=== PATIENT | male | born 1965 | race Caucasian/White ===

== ENCOUNTER 2019-12-16 20:43 | Inpatient (IN) ==
[2019-12-16] MEDS ORDERED: HEPARIN 5,000 UNIT/1 ML VIAL ONE (20:54)
[2019-12-16] MEDS ORDERED: HEPARIN 1,000 UNIT/1 ML VIAL IV STA (20:59)
[2019-12-16] MEDS ORDERED: CLOPIDOGREL 300 MG TABLET PO STA (20:59)
[2019-12-16] MEDS ORDERED: LIDOCAINE 1% 20 ML VIAL ONE (21:18)
[2019-12-16] MEDS ORDERED: HEPARIN/NACL 0.9% 2 UNITS/ML 1,000 ML IV ONE (21:18)
[2019-12-16] MEDS ORDERED: NITROGLYCERIN DRIP 50 MG/250 ML BOTTLE IV ONE (21:26)
[2019-12-16] MEDS ORDERED: MIDAZOLAM 2 MG/2 ML VIAL ONE (21:32)
[2019-12-16] MEDS ORDERED: HYDROmorphone 2 MG/1 ML VIAL ONE (21:32)
[2019-12-16] MEDS ORDERED: VERAPAMIL 5 MG/2 ML VIAL ONE (21:32)
[2019-12-16 21:42] LABS: Troponin I 0.158 NG/ML (0.00-0.045)
[2019-12-16 21:44] LABS: Basophils % 0.3 % (0.0-0.8); Eosinophils # 0.1 10*3/uL (0.0-0.87); Eosinophils % 1.6 % (0.00-10.9); Immature Granulocytes % 0.7 %; Immature Granulocytes Absolute 0.05 #; Lymphocytes % 12.6 % (21.2-54.2); Mean Corpuscular HGB Conc 29.7 GM/DL (32-36); Mean Corpuscular Volume 134.1 FL (87-102); Mean Platelet Volume 10.2 FL (9.6-12.0); Monocytes % 4.6 % (1.7-12.7); Neutrophils % 80.2 % (38.7-73.9); Platelet Count 124 T/CUMM (130-400); Red Blood Count 1.23 MC/CUMM (3.8-5.5); Red Cell Distribution Width 13.5 % (9.3-17.3); White Blood Count 7.6 T/CUMM (4-12)
[2019-12-16 21:47] LABS: Hematocrit 16.5 VOL% (42.0-52.0); Hemoglobin 4.9 GM/DL (14.0-18.0)
[2019-12-16] MEDS ORDERED: DOPamine 800 MG/250 ML PREMIX IV ONE (21:50)
[2019-12-16 21:53] LABS: Barbiturates Screen,Urine Negative (Negative); Benzodiazepines Screen,Urine Positive (Negative); Cannabinoid Screen,Urine Negative (Negative); Opiate Screen,Urine Positive (Negative); Phencyclidine Screen,Urine Negative (Negative)
[2019-12-16 22:02] LABS: Albumin 2.8 G/DL (3.4-5.0); Bilirubin,Total 0.6 MG/DL (0.2-1.0); Calcium 7.8 MG/DL (8.5-10.1); Osmolality,Calculated 281.1 MOS/KG (273-304); Total Protein 6.3 G/DL (6.4-8.3)
[2019-12-16] MEDS ORDERED: NALOXONE 0.4 MG/ML VIAL ONE (22:27)
[2019-12-16] MEDS ORDERED: flumazeniL 0.5 MG/5 ML VIAL IV ONE (22:27)
[2019-12-16 22:33] LABS: ABG Base Excess -18.8 MMOL/L (-2.5-2.5); ABG HCO3 10.5 MMOL/L (20-26); ABG Oxygen Saturation 83.1 % (95-100); ABG PO2 78.1 MM HG (80-95); ABG TCO2 14.9 MMOL/L (23-27)
[2019-12-16 22:35] LABS: ABG PCO2 70.5 MM HG (35-48)
[2019-12-16 22:36] LABS: ABG PH 6.932 (7.35-7.45)
[2019-12-16] MEDS ORDERED: ROCURONIUM 100 MG/10 ML VIAL IV ONE (22:37)
[2019-12-16] MEDS ORDERED: ETOMIDATE 20 MG/10 ML VIAL IV ONE (22:38)
[2019-12-16] MEDS ORDERED: EPTIFIBATIDE 75 MG/100 ML BOTTLE IV ONE (22:46)
[2019-12-16] MEDS ORDERED: EPTIFIBATIDE 20,000 MCG/10 ML VIAL ONE (22:46)
[2019-12-16 22:48] LABS: INR 1.2; PT Patient Result 12.6 SECS (9.8-11.9)
[2019-12-16 22:55] LABS: Partial Thromboplastin Time 100.6 SECS (23.9-33.8)
[2019-12-16] MEDS ORDERED: SODIUM BICARBONATE 50 MEQ/50 ML VIAL IV ONE ×2 (23:29)
[2019-12-16] MEDS ORDERED: ONDANSETRON 4 MG/2 ML VIAL IV PRN (23:30)
[2019-12-16] MEDS ORDERED: LACTATED RINGERS 1,000 ML IV SCH (23:30)
[2019-12-16] MEDS ORDERED: MAGNESIUM SULF RIDER 4 GM in PREMIX 1 EACH IV ONE (23:30)
[2019-12-16 23:39] LABS: ABG Base Excess -16.7 MMOL/L (-2.5-2.5); ABG HCO3 12.2 MMOL/L (20-26); ABG PCO2 40.5 MM HG (35-48); ABG PO2 87.6 MM HG (80-95); ABG TCO2 11.8 MMOL/L (23-27); Allen Test Positive; Pt O2 Delivery Device Ventilator
[2019-12-16 23:42] LABS: ABG PH 7.113 (7.35-7.45)
[2019-12-17 00:06] LABS: Hematocrit 36.8 VOL% (42.0-52.0); Hemoglobin 11.5 GM/DL (14.0-18.0)
[2019-12-17 01:06] LABS: Basophils # 0.1 10*3/uL (0.0-0.2); Basophils % 0.4 % (0.0-0.8); Eosinophils % 0.1 % (0.00-10.9); Hematocrit 41.2 VOL% (42.0-52.0); Hemoglobin 13.2 GM/DL (14.0-18.0); Immature Granulocytes Absolute 0.15 #; Lymphocytes # 0.8 10*3/uL (1.4-4.0); Lymphocytes % 5.8 % (21.2-54.2); Mean Corpuscular Volume 121.9 FL (87-102); Mean Platelet Volume 10.4 FL (9.6-12.0); Monocytes % 3.4 % (1.7-12.7); NRBC # 0.02 10*3/uL; Neutrophils % 89.3 % (38.7-73.9); Platelet Count 251 T/CUMM (130-400); Red Blood Count 3.38 MC/CUMM (3.8-5.5); Red Cell Distribution Width 16.4 % (9.3-17.3); White Blood Count 14.6 T/CUMM (4-12)
[2019-12-17 01:18] LABS: Albumin 2.7 G/DL (3.4-5.0); Bilirubin,Total 1.3 MG/DL (0.2-1.0); Calcium 7.3 MG/DL (8.5-10.1); Osmolality,Calculated 285.1 MOS/KG (273-304); Total Protein 6.3 G/DL (6.4-8.3)
[2019-12-17] MEDS: SODIUM BICARB INJ 150 MEQ in DEXTROSE 5% 850 ML IV SCH ×2 (01:46→13:07)
[2019-12-17] MEDS ORDERED: PHENYLEPHRINE DRIP 40 MG/250 ML PREMIX IV ONE (01:48)
[2019-12-17] MEDS: PHENYLEPHRINE DRIP 40 MG/250 ML PREMIX IV PRN ×3 (02:45→18:19)
[2019-12-17] MEDS ORDERED: NOREPINEPHRINE 8 MG in SODIUM CHLORIDE 0.9% 242 ML IV PRN (02:57)
[2019-12-17 04:29] LABS: Hypochromasia 1+; Platelet Estimate Adequate
[2019-12-17] MEDS: CLINDAMYCIN INJ 600 MG in PREMIX 1 EACH IV SCH ×3 (04:45→21:50)
[2019-12-17 05:27] LABS: ABG Base Excess -3.7 MMOL/L (-2.5-2.5); ABG HCO3 21.4 MMOL/L (20-26); ABG Oxygen Saturation 99.8 % (95-100); ABG PCO2 31.8 MM HG (35-48); ABG PH 7.407 (7.35-7.45); ABG TCO2 17.6 MMOL/L (23-27)
[2019-12-17 05:42] LABS: Basophils # 0.1 10*3/uL (0.0-0.2); Basophils % 0.3 % (0.0-0.8); Eosinophils % 0.1 % (0.00-10.9); Hematocrit 37.7 VOL% (42.0-52.0); Hemoglobin 12.5 GM/DL (14.0-18.0); Immature Granulocytes % 0.8 %; Immature Granulocytes Absolute 0.11 #; Lymphocytes # 1.4 10*3/uL (1.4-4.0); Mean Corpuscular HGB Conc 33.2 GM/DL (32-36); Mean Corpuscular Volume 117.8 FL (87-102); Mean Platelet Volume 10.6 FL (9.6-12.0); Monocytes % 5.3 % (1.7-12.7); Neutrophils % 83.5 % (38.7-73.9); Platelet Count 272 T/CUMM (130-400); Red Cell Distribution Width 16.5 % (9.3-17.3); White Blood Count 14.4 T/CUMM (4-12)
[2019-12-17 05:58] LABS: Albumin 2.5 G/DL (3.4-5.0); Apearance,Urine CLEAR (Clear); Bacteria,Urine Occasional /HPF (Few); Bilirubin,Total 1.6 MG/DL (0.2-1.0); Bilirubin,Urine Negative (Negative); Blood, Urine Large mg/dL (Negative); Calcium 7.3 MG/DL (8.5-10.1); Glucose,Urine (UA) Negative (Negative); Hyaline Casts,Urine 1 /LPF (0-3); Ketones,Urine Negative (Negative); Mucus,Urine Occasional /LPF (Occasional); Nitrite,Urine Negative (Negative); Protein,Urine 30 MG/DL; RBC,Urine 68 /HPF (0-4); Squamous Epithelial Cell,Urine Occasional /HPF (0-10); Total Protein 5.8 G/DL (6.4-8.3); Urine Color Yellow (Yellow); Urine Specific Gravity > 1.060 (1.001-1.035); Urine Urobilinogen < 2.0 EU/DL (0.2-1.0); WBC,Urine 44 /HPF (0-6)
[2019-12-17 06:04] LABS: Platelet Estimate Adequate
[2019-12-17 06:05] LABS: Hypochromasia Slight
[2019-12-17 07:24] LABS: VLDL CHOLESTEROL 70.4 MG/DL
[2019-12-17] MEDS ORDERED: ASPIRIN EC 81 MG TABLET PO SCH (09:00)
[2019-12-17] MEDS: ENOXAPARIN 40 MG/0.4 ML SYRINGE SUBCUT SCH (10:13)
[2019-12-17] MEDS: TICAGRELOR 90 MG TABLET PO SCH ×2 (10:14→22:08)
[2019-12-17] MEDS: THIAMINE 200 MG/2 ML VIAL IV SCH (10:14)
[2019-12-17] MEDS: PANTOPRAZOLE 40 MG VIAL IV SCH (10:16)
[2019-12-17] MEDS: FOLIC ACID INJ 1 MG in SYRINGE 1 EACH IV SCH (10:21)
[2019-12-17] MEDS: MIDAZOLAM 100 MG in SODIUM CHLORIDE 0.9% 80 ML IV PRN (14:56)
[2019-12-17] MEDS: LORazepam 2 MG/1 ML VIAL IV SCH (22:00)
[2019-12-17] MEDS: ROSUVASTATIN 20 MG TABLET PO SCH (22:08)
[2019-12-18] MEDS: LORazepam 2 MG/1 ML VIAL IV SCH ×6 (00:25→20:29)
[2019-12-18] MEDS: SODIUM BICARB INJ 150 MEQ in DEXTROSE 5% 850 ML IV SCH (03:06)
[2019-12-18] MEDS: PHENYLEPHRINE DRIP 40 MG/250 ML PREMIX IV PRN ×2 (03:08→13:55)
[2019-12-18 04:20] LABS: ABG Base Excess 1.9 MMOL/L (-2.5-2.5); ABG HCO3 22.2 MMOL/L (20-26); ABG PCO2 24.8 MM HG (35-48); ABG PO2 124.6 MM HG (80-95)
[2019-12-18 04:22] LABS: ABG Oxygen Saturation 98.9 % (95-100)
[2019-12-18] MEDS: CLINDAMYCIN INJ 600 MG in PREMIX 1 EACH IV SCH ×3 (04:30→20:29)
[2019-12-18 04:49] LABS: Basophils # 0.1 10*3/uL (0.0-0.2); Basophils % 0.4 % (0.0-0.8); Eosinophils % 0.2 % (0.00-10.9); Hematocrit 37.5 VOL% (42.0-52.0); Hemoglobin 12.1 GM/DL (14.0-18.0); Immature Granulocytes % 0.3 %; Immature Granulocytes Absolute 0.05 #; Lymphocytes # 1.6 10*3/uL (1.4-4.0); Lymphocytes % 10.3 % (21.2-54.2); Mean Corpuscular HGB Conc 32.3 GM/DL (32-36); Mean Corpuscular Volume 119.4 FL (87-102); Mean Platelet Volume 10.6 FL (9.6-12.0); Monocytes % 5.6 % (1.7-12.7); NRBC # 0.02 10*3/uL; Neutrophils % 83.2 % (38.7-73.9); Platelet Count 194 T/CUMM (130-400); Red Blood Count 3.14 MC/CUMM (3.8-5.5); Red Cell Distribution Width 16.9 % (9.3-17.3); White Blood Count 15.2 T/CUMM (4-12)
[2019-12-18 05:10] LABS: Hypochromasia 1+; Platelet Estimate Adequate
[2019-12-18 05:26] LABS: Albumin 2.2 G/DL (3.4-5.0); Bilirubin,Total 0.9 MG/DL (0.2-1.0); Calcium 7.4 MG/DL (8.5-10.1); Osmolality,Calculated 284.1 MOS/KG (273-304); Total Protein 5.7 G/DL (6.4-8.3)
[2019-12-18] MEDS: MIDAZOLAM 100 MG in SODIUM CHLORIDE 0.9% 80 ML IV PRN ×2 (06:04→22:20)
[2019-12-18] MEDS: PANTOPRAZOLE 40 MG VIAL IV SCH (08:20)
[2019-12-18] MEDS: ENOXAPARIN 40 MG/0.4 ML SYRINGE SUBCUT SCH (08:21)
[2019-12-18] MEDS: THIAMINE 200 MG/2 ML VIAL IV SCH (08:22)
[2019-12-18] MEDS: TICAGRELOR 90 MG TABLET PO SCH ×2 (08:25→20:29)
[2019-12-18] MEDS: ASPIRIN CHEW 81 MG TABLET PO SCH (08:26)
[2019-12-18] MEDS ORDERED: POTASSIUM CHLORIDE 20 MEQ/15 ML UDCUP PER TUBE ONE (09:00)
[2019-12-18] MEDS: FOLIC ACID INJ 1 MG in SYRINGE 1 EACH IV SCH (09:18)
[2019-12-18] MEDS: MULTIVITAMIN LIQUID (CENTRUM) 60 ML BOTTLE PER TUBE SCH (09:20)
[2019-12-18] MEDS: SPIRONOLACTONE 25 MG TABLET PO SCH (12:58)
[2019-12-18] MEDS ORDERED: DEXTROSE 10% 250 ML BAG IV PRN (14:21)
[2019-12-18] MEDS ORDERED: GLUCAGON 1 MG VIAL IM PRN (14:21)
[2019-12-18] MEDS: methylPREDNISolone SOD SUC 40 MG/1 ML VIAL IV SCH (17:20)
[2019-12-18] MEDS: INSULIN REGULAR 100 UNIT/ML SUBCUT SCH (17:49)
[2019-12-18] MEDS: ROSUVASTATIN 20 MG TABLET PO SCH (20:29)
[2019-12-19] MEDS: INSULIN REGULAR 100 UNIT/ML SUBCUT SCH ×4 (00:29→17:37)
[2019-12-19] MEDS: LORazepam 2 MG/1 ML VIAL IV SCH ×6 (00:29→20:08)
[2019-12-19] MEDS: CLINDAMYCIN INJ 600 MG in PREMIX 1 EACH IV SCH (04:00)
[2019-12-19] MEDS: methylPREDNISolone SOD SUC 40 MG/1 ML VIAL IV SCH ×2 (04:18→15:38)
[2019-12-19 04:25] LABS: Basophils % 0.2 % (0.0-0.8); Eosinophils % 0.1 % (0.00-10.9); Hematocrit 36.7 VOL% (42.0-52.0); Hemoglobin 11.9 GM/DL (14.0-18.0); Immature Granulocytes % 0.6 %; Immature Granulocytes Absolute 0.08 #; Lymphocytes # 0.9 10*3/uL (1.4-4.0); Lymphocytes % 7.5 % (21.2-54.2); Mean Corpuscular HGB Conc 32.4 GM/DL (32-36); Mean Platelet Volume 11.3 FL (9.6-12.0); Monocytes % 5.9 % (1.7-12.7); Neutrophils % 85.7 % (38.7-73.9); Platelet Count 161 T/CUMM (130-400); Red Blood Count 3.11 MC/CUMM (3.8-5.5); Red Cell Distribution Width 16.3 % (9.3-17.3); White Blood Count 12.6 T/CUMM (4-12)
[2019-12-19 04:48] LABS: ABG Base Excess -1.7 MMOL/L (-2.5-2.5); ABG HCO3 20.6 MMOL/L (20-26); ABG Oxygen Saturation 98.4 % (95-100); ABG PCO2 27.8 MM HG (35-48); ABG PH 7.487 (7.35-7.45); ABG PO2 117.8 MM HG (80-95); ABG TCO2 21.4 MMOL/L (23-27); Allen Test Positive; Pt O2 Delivery Device Ventilator
[2019-12-19 04:48] LABS: Calcium 7.4 MG/DL (8.5-10.1); Osmolality,Calculated 283.3 MOS/KG (273-304)
[2019-12-19 04:52] LABS: Albumin 2.2 G/DL (3.4-5.0); Bilirubin,Total 1.2 MG/DL (0.2-1.0); Calcium 7.5 MG/DL (8.5-10.1); Hypochromasia 1+; Macrocytosis 1+; Osmolality,Calculated 283.3 MOS/KG (273-304); Polychromasia Slight; Total Protein 5.7 G/DL (6.4-8.3)
[2019-12-19 04:53] LABS: Platelet Estimate Adequate
[2019-12-19 05:15] LABS: Prealbumin 12.4 MG/DL (20-40)
[2019-12-19] MEDS: PANTOPRAZOLE 40 MG VIAL IV SCH (08:15)
[2019-12-19] MEDS: THIAMINE 200 MG/2 ML VIAL IV SCH (08:18)
[2019-12-19] MEDS: TICAGRELOR 90 MG TABLET PO SCH ×2 (08:20→20:56)
[2019-12-19] MEDS: ENOXAPARIN 40 MG/0.4 ML SYRINGE SUBCUT SCH (08:20)
[2019-12-19] MEDS: SPIRONOLACTONE 25 MG TABLET PO SCH (08:21)
[2019-12-19] MEDS: MULTIVITAMIN LIQUID (CENTRUM) 60 ML BOTTLE PER TUBE SCH (08:21)
[2019-12-19] MEDS: ASPIRIN CHEW 81 MG TABLET PO SCH (08:21)
[2019-12-19] MEDS: FOLIC ACID INJ 1 MG in SYRINGE 1 EACH IV SCH (10:44)
[2019-12-19] MEDS: POTASSIUM PHOS/SOD PHOS POWDER 250 MG PACK PER TUBE SCH ×3 (10:45→20:57)
[2019-12-19] MEDS: cefOXitin 1,000 MG in SYRINGE 1 EACH IV SCH ×2 (10:45→17:46)
[2019-12-19] MEDS: MIDAZOLAM 100 MG in SODIUM CHLORIDE 0.9% 80 ML IV PRN (16:45)
[2019-12-19] MEDS: ROSUVASTATIN 20 MG TABLET PO SCH (20:56)
[2019-12-19] MEDS: PHENYLEPHRINE DRIP 40 MG/250 ML PREMIX IV PRN (22:00)
[2019-12-20] MEDS: LORazepam 2 MG/1 ML VIAL IV SCH ×3 (00:46→08:39)
[2019-12-20] MEDS: INSULIN REGULAR 100 UNIT/ML SUBCUT SCH ×4 (00:53→18:13)
[2019-12-20] MEDS: cefOXitin 1,000 MG in SYRINGE 1 EACH IV SCH ×3 (03:00→18:22)
[2019-12-20 03:52] LABS: Basophils % 0.2 % (0.0-0.8); Eosinophils % 0.1 % (0.00-10.9); Hematocrit 38.2 VOL% (42.0-52.0); Hemoglobin 12.1 GM/DL (14.0-18.0); Immature Granulocytes % 0.4 %; Immature Granulocytes Absolute 0.05 #; Lymphocytes # 1.2 10*3/uL (1.4-4.0); Lymphocytes % 9.2 % (21.2-54.2); Mean Corpuscular HGB Conc 31.7 GM/DL (32-36); Mean Corpuscular Volume 122.4 FL (87-102); Mean Platelet Volume 11.5 FL (9.6-12.0); Monocytes % 5.2 % (1.7-12.7); Neutrophils % 84.9 % (38.7-73.9); Platelet Count 161 T/CUMM (130-400); Red Blood Count 3.12 MC/CUMM (3.8-5.5); White Blood Count 12.6 T/CUMM (4-12)
[2019-12-20] MEDS: methylPREDNISolone SOD SUC 40 MG/1 ML VIAL IV SCH ×2 (03:52→15:43)
[2019-12-20 04:20] LABS: Hypochromasia 1+; Macrocytosis 1+; Platelet Estimate Adequate
[2019-12-20 04:26] LABS: ABG Base Excess -1.8 MMOL/L (-2.5-2.5); ABG HCO3 21.5 MMOL/L (20-26); ABG Oxygen Saturation 98.3 % (95-100); ABG PCO2 32.2 MM HG (35-48); ABG PH 7.442 (7.35-7.45); ABG PO2 118.6 MM HG (80-95); ABG TCO2 22.5 MMOL/L (23-27); Allen Test Positive; Pt O2 Delivery Device Ventilator
[2019-12-20 05:12] LABS: Calcium 7.8 MG/DL (8.5-10.1); Osmolality,Calculated 285.1 MOS/KG (273-304)
[2019-12-20] MEDS: TICAGRELOR 90 MG TABLET PO SCH ×2 (08:38→20:27)
[2019-12-20] MEDS: SPIRONOLACTONE 25 MG TABLET PO SCH (08:38)
[2019-12-20] MEDS: ASPIRIN CHEW 81 MG TABLET PO SCH (08:39)
[2019-12-20] MEDS: ENOXAPARIN 40 MG/0.4 ML SYRINGE SUBCUT SCH (08:39)
[2019-12-20] MEDS: PANTOPRAZOLE 40 MG VIAL IV SCH (08:42)
[2019-12-20] MEDS: THIAMINE 200 MG/2 ML VIAL IV SCH (08:42)
[2019-12-20] MEDS: MULTIVITAMIN LIQUID (CENTRUM) 60 ML BOTTLE PER TUBE SCH (08:46)
[2019-12-20] MEDS: FOLIC ACID INJ 1 MG in SYRINGE 1 EACH IV SCH (09:25)
[2019-12-20] MEDS: FOLIC ACID 1 MG TABLET PO SCH (10:33)
[2019-12-20] MEDS: chlordiazePOXIDE 25 MG CAPSULE PO SCH ×4 (10:52→21:16)
[2019-12-20] MEDS: carvediloL 3.125 MG TABLET PO SCH ×2 (12:08→20:27)
[2019-12-20] MEDS: ALBUTEROL/IPRATROPIUM 3 ML NEB RESP TX SCH ×2 (13:35→19:54)
[2019-12-20] MEDS: LORazepam 2 MG/1 ML VIAL IV PRN ×4 (15:41→23:28)
[2019-12-20] MEDS: DEXMEDETOMIDINE 200 MCG in SODIUM CHLORIDE 0.9% 48 ML IV PRN ×2 (17:45→20:48)
[2019-12-20] MEDS: ROSUVASTATIN 20 MG TABLET PO SCH (20:27)
[2019-12-21] MEDS: INSULIN REGULAR 100 UNIT/ML SUBCUT SCH ×4 (00:17→17:32)
[2019-12-21] MEDS: LORazepam 2 MG/1 ML VIAL IV PRN ×6 (01:19→18:55)
[2019-12-21] MEDS: cefOXitin 1,000 MG in SYRINGE 1 EACH IV SCH ×2 (02:58→09:59)
[2019-12-21] MEDS: chlordiazePOXIDE 25 MG CAPSULE PO SCH ×4 (04:29→21:48)
[2019-12-21] MEDS: methylPREDNISolone SOD SUC 40 MG/1 ML VIAL IV SCH ×2 (04:30→16:04)
[2019-12-21 04:36] LABS: Basophils % 0.2 % (0.0-0.8); Eosinophils % 0.1 % (0.00-10.9); Hematocrit 35.8 VOL% (42.0-52.0); Hemoglobin 11.6 GM/DL (14.0-18.0); Immature Granulocytes % 0.7 %; Immature Granulocytes Absolute 0.07 #; Lymphocytes # 1.4 10*3/uL (1.4-4.0); Lymphocytes % 13.7 % (21.2-54.2); Mean Corpuscular HGB Conc 32.4 GM/DL (32-36); Mean Corpuscular Volume 121.4 FL (87-102); Mean Platelet Volume 11.3 FL (9.6-12.0); Monocytes % 8.7 % (1.7-12.7); Neutrophils % 76.6 % (38.7-73.9); Platelet Count 173 T/CUMM (130-400); Red Blood Count 2.95 MC/CUMM (3.8-5.5); Red Cell Distribution Width 15.5 % (9.3-17.3); White Blood Count 10.1 T/CUMM (4-12)
[2019-12-21 04:47] LABS: ABG Base Excess -1.3 MMOL/L (-2.5-2.5); ABG HCO3 21.2 MMOL/L (20-26); ABG Oxygen Saturation 92.5 % (95-100); ABG PH 7.467 (7.35-7.45); ABG PO2 59.3 MM HG (80-95); ABG TCO2 22.1 MMOL/L (23-27)
[2019-12-21 05:00] LABS: Hypochromasia 1+; Macrocytosis 1+; Platelet Estimate Adequate
[2019-12-21] MEDS: DEXMEDETOMIDINE 400 MCG in SODIUM CHLORIDE 0.9% 96 ML IV PRN ×2 (05:00→13:00)
[2019-12-21 05:06] LABS: Calcium 8.3 MG/DL (8.5-10.1); Osmolality,Calculated 294.4 MOS/KG (273-304)
[2019-12-21] MEDS: ALBUTEROL/IPRATROPIUM 3 ML NEB RESP TX SCH ×4 (07:35→19:40)
[2019-12-21] MEDS ORDERED: FUROSEMIDE 40 MG/4 ML VIAL IV ONE (07:51)
[2019-12-21] MEDS ORDERED: ETOMIDATE 20 MG/10 ML VIAL IV ONE ×2 (08:05→08:30)
[2019-12-21] MEDS ORDERED: SUCCINYLCHOLINE 200 MG/10 ML VIAL ONE (08:06)
[2019-12-21] MEDS ORDERED: SUCCINYLCHOLINE 200 MG/10 ML VIAL IV ONE ×2 (08:30)
[2019-12-21] MEDS ORDERED: MAGNESIUM SULF RIDER 2 GM in PREMIX 1 EACH IV ONE (08:30)
[2019-12-21 09:17] LABS: ABG Base Excess -2.6 MMOL/L (-2.5-2.5); ABG HCO3 21.5 MMOL/L (20-26); ABG Oxygen Saturation 99.6 % (95-100); ABG PCO2 35.5 MM HG (35-48); ABG PO2 258.6 MM HG (80-95); ABG TCO2 22.6 MMOL/L (23-27); Allen Test Positive; Pt O2 Delivery Device Ventilator
[2019-12-21] MEDS: ENOXAPARIN 40 MG/0.4 ML SYRINGE SUBCUT SCH (09:51)
[2019-12-21] MEDS: THIAMINE 100 MG TABLET PO SCH (09:52)
[2019-12-21] MEDS: carvediloL 3.125 MG TABLET PO SCH ×2 (09:52→21:47)
[2019-12-21] MEDS: ASPIRIN CHEW 81 MG TABLET PO SCH (09:52)
[2019-12-21] MEDS: FOLIC ACID 1 MG TABLET PO SCH (09:52)
[2019-12-21] MEDS: PANTOPRAZOLE 40 MG VIAL IV SCH (09:52)
[2019-12-21] MEDS: TICAGRELOR 90 MG TABLET PO SCH ×2 (09:52→21:47)
[2019-12-21] MEDS: SPIRONOLACTONE 25 MG TABLET PO SCH (09:52)
[2019-12-21] MEDS: MULTIVITAMIN (CENTRUM) TABLET PO SCH (09:52)
[2019-12-21] MEDS ORDERED: carvediloL 3.125 MG TABLET PO ONE (09:57)
[2019-12-21] MEDS ORDERED: MAGNESIUM SULF RIDER 4 GM in PREMIX 1 EACH IV PRN (10:07)
[2019-12-21] MEDS ORDERED: POTASSIUM CHLORIDE RIDER 10 MEQ in PREMIX 1 EACH IV PRN (10:07)
[2019-12-21] MEDS ORDERED: MAGNESIUM SULF RIDER 2 GM in PREMIX 1 EACH IV PRN (10:07)
[2019-12-21] MEDS ORDERED: POTASSIUM CHLORIDE 20 MEQ TABLET PO ONE (10:18)
[2019-12-21] MEDS: MIDAZOLAM 100 MG in SODIUM CHLORIDE 0.9% 80 ML IV PRN (12:22)
[2019-12-21] MEDS: CLINDAMYCIN INJ 600 MG in PREMIX 1 EACH IV SCH ×2 (15:00→21:48)
[2019-12-21] MEDS: cefTRIAXone 1,000 MG in SYRINGE 1 EACH IV SCH (15:00)
[2019-12-21] MEDS: FUROSEMIDE 40 MG/4 ML VIAL IV SCH (16:05)
[2019-12-21] MEDS ORDERED: carvediloL 3.125 MG TABLET PO SCH (21:00)
[2019-12-21] MEDS: ROSUVASTATIN 20 MG TABLET PO SCH (21:47)
[2019-12-22] MEDS: ALBUTEROL/IPRATROPIUM 3 ML NEB RESP TX SCH ×4 (01:45→19:10)
[2019-12-22] MEDS: INSULIN REGULAR 100 UNIT/ML SUBCUT SCH ×4 (02:00→17:22)
[2019-12-22 04:15] LABS: ABG HCO3 25.4 MMOL/L (20-26); ABG Oxygen Saturation 98.7 % (95-100); ABG PCO2 34.4 MM HG (35-48); ABG TCO2 21.7 MMOL/L (23-27); Allen Test Positive; Pt O2 Delivery Device Ventilator
[2019-12-22] MEDS: chlordiazePOXIDE 25 MG CAPSULE PO SCH ×4 (05:30→21:52)
[2019-12-22 06:10] LABS: Basophils % 0.2 % (0.0-0.8); Eosinophils % 0.4 % (0.00-10.9); Hematocrit 34.6 VOL% (42.0-52.0); Hemoglobin 11.2 GM/DL (14.0-18.0); Immature Granulocytes % 0.4 %; Immature Granulocytes Absolute 0.04 #; Lymphocytes # 1.5 10*3/uL (1.4-4.0); Lymphocytes % 15.9 % (21.2-54.2); Mean Corpuscular HGB Conc 32.4 GM/DL (32-36); Mean Corpuscular Volume 120.1 FL (87-102); Mean Platelet Volume 11.2 FL (9.6-12.0); Monocytes % 9.9 % (1.7-12.7); Neutrophils % 73.2 % (38.7-73.9); Platelet Count 162 T/CUMM (130-400); Red Blood Count 2.88 MC/CUMM (3.8-5.5); Red Cell Distribution Width 15.6 % (9.3-17.3); White Blood Count 9.5 T/CUMM (4-12)
[2019-12-22] MEDS: CLINDAMYCIN INJ 600 MG in PREMIX 1 EACH IV SCH ×3 (06:14→22:04)
[2019-12-22] MEDS: MIDAZOLAM 100 MG in SODIUM CHLORIDE 0.9% 80 ML IV PRN ×2 (06:18→17:52)
[2019-12-22] MEDS: methylPREDNISolone SOD SUC 40 MG/1 ML VIAL IV SCH ×2 (06:18→16:18)
[2019-12-22 06:26] LABS: Calcium 8.3 MG/DL (8.5-10.1); Osmolality,Calculated 296.4 MOS/KG (273-304)
[2019-12-22 06:54] LABS: Hypochromasia 1+; Macrocytosis 1+
[2019-12-22 06:55] LABS: Platelet Estimate Adequate
[2019-12-22] MEDS ORDERED: POTASSIUM CHLORIDE 20 MEQ TABLET PO ONE (08:17)
[2019-12-22] MEDS: FUROSEMIDE 40 MG/4 ML VIAL IV SCH ×2 (08:44→14:35)
[2019-12-22] MEDS: PANTOPRAZOLE 40 MG VIAL IV SCH (08:44)
[2019-12-22] MEDS: SPIRONOLACTONE 25 MG TABLET PO SCH (08:45)
[2019-12-22] MEDS: TICAGRELOR 90 MG TABLET PO SCH ×2 (08:45→21:51)
[2019-12-22] MEDS: ASPIRIN CHEW 81 MG TABLET PO SCH (08:45)
[2019-12-22] MEDS: carvediloL 3.125 MG TABLET PO SCH (08:45)
[2019-12-22] MEDS: MULTIVITAMIN (CENTRUM) TABLET PO SCH (08:45)
[2019-12-22] MEDS: THIAMINE 100 MG TABLET PO SCH (08:46)
[2019-12-22] MEDS: FOLIC ACID 1 MG TABLET PO SCH (08:48)
[2019-12-22] MEDS: ENOXAPARIN 40 MG/0.4 ML SYRINGE SUBCUT SCH (08:48)
[2019-12-22] MEDS: LORazepam 2 MG/1 ML VIAL IV PRN ×5 (09:25→18:17)
[2019-12-22] MEDS ORDERED: carvediloL 3.125 MG TABLET PO ONE (11:33)
[2019-12-22] MEDS: cefTRIAXone 1,000 MG in SYRINGE 1 EACH IV SCH (13:20)
[2019-12-22] MEDS: carvediloL 6.25 MG TABLET PO SCH (17:05)
[2019-12-22] MEDS: ROSUVASTATIN 20 MG TABLET PO SCH (21:52)
[2019-12-23] MEDS: FUROSEMIDE 40 MG/4 ML VIAL IV SCH ×3 (00:03→15:22)
[2019-12-23] MEDS: ALBUTEROL/IPRATROPIUM 3 ML NEB RESP TX SCH ×4 (00:08→19:35)
[2019-12-23] MEDS: INSULIN REGULAR 100 UNIT/ML SUBCUT SCH ×4 (02:32→17:45)
[2019-12-23] MEDS: DEXMEDETOMIDINE 400 MCG in SODIUM CHLORIDE 0.9% 96 ML IV PRN (03:50)
[2019-12-23] MEDS: chlordiazePOXIDE 25 MG CAPSULE PO SCH ×4 (04:05→22:05)
[2019-12-23] MEDS: methylPREDNISolone SOD SUC 40 MG/1 ML VIAL IV SCH ×2 (04:05→15:28)
[2019-12-23 04:49] LABS: ABG Base Excess 6.1 MMOL/L (-2.5-2.5); ABG HCO3 29.9 MMOL/L (20-26); ABG Oxygen Saturation 94.1 % (95-100); ABG PCO2 35.5 MM HG (35-48); ABG PH 7.521 (7.35-7.45); ABG TCO2 25.5 MMOL/L (23-27); Allen Test Positive; Pt O2 Delivery Device Ventilator
[2019-12-23 06:12] LABS: Basophils % 0.3 % (0.0-0.8); Eosinophils # 0.1 10*3/uL (0.0-0.87); Eosinophils % 0.4 % (0.00-10.9); Hematocrit 37.1 VOL% (42.0-52.0); Hemoglobin 12.1 GM/DL (14.0-18.0); Immature Granulocytes % 0.5 %; Immature Granulocytes Absolute 0.06 #; Lymphocytes # 0.7 10*3/uL (1.4-4.0); Lymphocytes % 6.5 % (21.2-54.2); Mean Corpuscular HGB Conc 32.6 GM/DL (32-36); Mean Corpuscular Volume 118.2 FL (87-102); Mean Platelet Volume 11.1 FL (9.6-12.0); Monocytes % 4.7 % (1.7-12.7); Neutrophils % 87.6 % (38.7-73.9); Platelet Count 199 T/CUMM (130-400); Red Blood Count 3.14 MC/CUMM (3.8-5.5); Red Cell Distribution Width 15.2 % (9.3-17.3); White Blood Count 11.2 T/CUMM (4-12)
[2019-12-23 06:30] LABS: Calcium 9.2 MG/DL (8.5-10.1); Osmolality,Calculated 295.7 MOS/KG (273-304)
[2019-12-23] MEDS: CLINDAMYCIN INJ 600 MG in PREMIX 1 EACH IV SCH ×3 (06:41→22:06)
[2019-12-23] MEDS: MIDAZOLAM 100 MG in SODIUM CHLORIDE 0.9% 80 ML IV PRN (06:50)
[2019-12-23] MEDS: carvediloL 6.25 MG TABLET PO SCH ×2 (08:10→17:05)
[2019-12-23] MEDS ORDERED: BISACODYL 5 MG TABLET PO ONE (08:20)
[2019-12-23] MEDS: MULTIVITAMIN (CENTRUM) TABLET PO SCH (08:53)
[2019-12-23] MEDS: FOLIC ACID 1 MG TABLET PO SCH (08:54)
[2019-12-23] MEDS: SPIRONOLACTONE 50 MG TABLET PO SCH (08:54)
[2019-12-23] MEDS: ASPIRIN CHEW 81 MG TABLET PO SCH (08:54)
[2019-12-23] MEDS: THIAMINE 100 MG TABLET PO SCH (08:54)
[2019-12-23] MEDS: ENOXAPARIN 40 MG/0.4 ML SYRINGE SUBCUT SCH (08:55)
[2019-12-23] MEDS: TICAGRELOR 90 MG TABLET PO SCH ×2 (08:55→22:05)
[2019-12-23] MEDS: PANTOPRAZOLE 40 MG VIAL IV SCH (08:56)
[2019-12-23] MEDS: POLYETHYLENE GLYCOL POWDER 17 GM PACK PO SCH (09:05)
[2019-12-23] MEDS: POTASSIUM CHLORIDE 20 MEQ/15 ML UDCUP PER TUBE SCH ×2 (14:20→22:05)
[2019-12-23] MEDS: cefTRIAXone 1,000 MG in SYRINGE 1 EACH IV SCH (14:46)
[2019-12-23] MEDS: ROSUVASTATIN 20 MG TABLET PO SCH (22:05)
[2019-12-24] MEDS: INSULIN REGULAR 100 UNIT/ML SUBCUT SCH ×4 (00:20→18:32)
[2019-12-24] MEDS: ALBUTEROL/IPRATROPIUM 3 ML NEB RESP TX SCH ×4 (00:57→20:03)
[2019-12-24] MEDS: DEXMEDETOMIDINE 400 MCG in SODIUM CHLORIDE 0.9% 96 ML IV PRN (02:06)
[2019-12-24] MEDS: FUROSEMIDE 40 MG/4 ML VIAL IV SCH ×2 (04:00→14:35)
[2019-12-24 05:10] LABS: ABG Base Excess 7.7 MMOL/L (-2.5-2.5); ABG HCO3 30.4 MMOL/L (20-26); ABG Oxygen Saturation 90.5 % (95-100); ABG PCO2 36.2 MM HG (35-48); ABG PH 7.542 (7.35-7.45); ABG PO2 58.9 MM HG (80-95); ABG TCO2 31.5 MMOL/L (23-27); Allen Test Positive; Pt O2 Delivery Device Ventilator
[2019-12-24] MEDS: methylPREDNISolone SOD SUC 40 MG/1 ML VIAL IV SCH (05:56)
[2019-12-24] MEDS: chlordiazePOXIDE 25 MG CAPSULE PO SCH ×4 (05:57→22:55)
[2019-12-24] MEDS: CLINDAMYCIN INJ 600 MG in PREMIX 1 EACH IV SCH ×3 (05:59→22:55)
[2019-12-24 06:27] LABS: Basophils % 0.3 % (0.0-0.8); Eosinophils # 0.1 10*3/uL (0.0-0.87); Eosinophils % 0.8 % (0.00-10.9); Hematocrit 40.6 VOL% (42.0-52.0); Hemoglobin 13.2 GM/DL (14.0-18.0); Immature Granulocytes % 0.8 %; Immature Granulocytes Absolute 0.09 #; Lymphocytes # 2.1 10*3/uL (1.4-4.0); Lymphocytes % 17.4 % (21.2-54.2); Mean Corpuscular HGB Conc 32.5 GM/DL (32-36); Mean Corpuscular Volume 117.7 FL (87-102); Mean Platelet Volume 11.3 FL (9.6-12.0); Monocytes % 8.3 % (1.7-12.7); Neutrophils % 72.4 % (38.7-73.9); Platelet Count 271 T/CUMM (130-400); Red Blood Count 3.45 MC/CUMM (3.8-5.5); Red Cell Distribution Width 15.3 % (9.3-17.3); White Blood Count 11.9 T/CUMM (4-12)
[2019-12-24 06:36] LABS: Calcium 9.6 MG/DL (8.5-10.1); Osmolality,Calculated 296.7 MOS/KG (273-304)
[2019-12-24 07:40] LABS: Platelet Estimate Normal
[2019-12-24 07:41] LABS: Anisocytosis 2+; Macrocytosis 1+; Polychromasia Slight
[2019-12-24] MEDS: carvediloL 6.25 MG TABLET PO SCH ×2 (08:00→17:05)
[2019-12-24] MEDS: ASPIRIN CHEW 81 MG TABLET PO SCH (09:00)
[2019-12-24] MEDS: MULTIVITAMIN (CENTRUM) TABLET PO SCH (09:00)
[2019-12-24] MEDS: TICAGRELOR 90 MG TABLET PO SCH ×2 (09:05→20:55)
[2019-12-24] MEDS: FOLIC ACID 1 MG TABLET PO SCH (09:05)
[2019-12-24] MEDS: SPIRONOLACTONE 50 MG TABLET PO SCH (09:05)
[2019-12-24] MEDS: ENOXAPARIN 40 MG/0.4 ML SYRINGE SUBCUT SCH (09:10)
[2019-12-24] MEDS: POLYETHYLENE GLYCOL POWDER 17 GM PACK PO SCH (09:10)
[2019-12-24] MEDS: POTASSIUM CHLORIDE 20 MEQ/15 ML UDCUP PER TUBE SCH ×2 (09:10→20:55)
[2019-12-24] MEDS: THIAMINE 100 MG TABLET PO SCH (09:15)
[2019-12-24] MEDS: PANTOPRAZOLE 40 MG VIAL IV SCH (09:54)
[2019-12-24] MEDS: LORazepam 2 MG/1 ML VIAL IV PRN (12:27)
[2019-12-24] MEDS: cefTRIAXone 1,000 MG in SYRINGE 1 EACH IV SCH (15:31)
[2019-12-24] MEDS: ROSUVASTATIN 20 MG TABLET PO SCH (20:55)
[2019-12-24] MEDS: MIDAZOLAM 100 MG in SODIUM CHLORIDE 0.9% 80 ML IV PRN (21:25)
[2019-12-25] MEDS: INSULIN REGULAR 100 UNIT/ML SUBCUT SCH ×5 (00:40→23:53)
[2019-12-25] MEDS: ALBUTEROL/IPRATROPIUM 3 ML NEB RESP TX SCH ×4 (00:55→19:34)
[2019-12-25] MEDS: DEXMEDETOMIDINE 400 MCG in SODIUM CHLORIDE 0.9% 96 ML IV PRN ×3 (03:08→18:15)
[2019-12-25] MEDS: FUROSEMIDE 40 MG/4 ML VIAL IV SCH (03:34)
[2019-12-25 04:31] LABS: Allen Test Positive; Pt O2 Delivery Device Ventilator
[2019-12-25 04:33] LABS: ABG HCO3 29.8 MMOL/L (20-26); ABG Oxygen Saturation 96.8 % (95-100); ABG PCO2 36.3 MM HG (35-48); ABG PO2 87.2 MM HG (80-95); ABG TCO2 23.9 MMOL/L (23-27)
[2019-12-25 05:06] LABS: Basophils # 0.1 10*3/uL (0.0-0.2); Basophils % 0.6 % (0.0-0.8); Eosinophils # 0.2 10*3/uL (0.0-0.87); Eosinophils % 1.8 % (0.00-10.9); Hematocrit 41.3 VOL% (42.0-52.0); Hemoglobin 13.4 GM/DL (14.0-18.0); Immature Granulocytes % 0.6 %; Immature Granulocytes Absolute 0.07 #; Lymphocytes # 1.9 10*3/uL (1.4-4.0); Lymphocytes % 16.9 % (21.2-54.2); Mean Corpuscular HGB Conc 32.4 GM/DL (32-36); Mean Corpuscular Volume 118.3 FL (87-102); Mean Platelet Volume 11.1 FL (9.6-12.0); Monocytes % 11.3 % (1.7-12.7); Neutrophils % 68.8 % (38.7-73.9); Platelet Count 293 T/CUMM (130-400); Red Blood Count 3.49 MC/CUMM (3.8-5.5); Red Cell Distribution Width 15.5 % (9.3-17.3); White Blood Count 11.3 T/CUMM (4-12)
[2019-12-25] MEDS: CLINDAMYCIN INJ 600 MG in PREMIX 1 EACH IV SCH ×3 (05:22→21:09)
[2019-12-25] MEDS: chlordiazePOXIDE 25 MG CAPSULE PO SCH ×4 (05:22→20:58)
[2019-12-25 05:23] LABS: Calcium 9.7 MG/DL (8.5-10.1); Osmolality,Calculated 298.7 MOS/KG (273-304)
[2019-12-25 05:25] LABS: Hypochromasia 1+; Platelet Estimate Adequate
[2019-12-25 05:26] LABS: Macrocytosis Slight
[2019-12-25 05:30] LABS: Prealbumin 34.6 MG/DL (20-40)
[2019-12-25] MEDS: MIDAZOLAM 100 MG in SODIUM CHLORIDE 0.9% 80 ML IV PRN ×2 (08:35→21:08)
[2019-12-25] MEDS: POTASSIUM CHLORIDE 20 MEQ/15 ML UDCUP PER TUBE SCH ×2 (08:45→20:59)
[2019-12-25] MEDS: THIAMINE 100 MG TABLET PO SCH (08:45)
[2019-12-25] MEDS: MULTIVITAMIN (CENTRUM) TABLET PO SCH (08:45)
[2019-12-25] MEDS: FOLIC ACID 1 MG TABLET PO SCH (08:45)
[2019-12-25] MEDS: SPIRONOLACTONE 50 MG TABLET PO SCH (08:45)
[2019-12-25] MEDS: ASPIRIN CHEW 81 MG TABLET PO SCH (08:45)
[2019-12-25] MEDS: TICAGRELOR 90 MG TABLET PO SCH ×2 (08:45→20:58)
[2019-12-25] MEDS: carvediloL 6.25 MG TABLET PO SCH ×2 (08:45→17:50)
[2019-12-25] MEDS: PANTOPRAZOLE 40 MG VIAL IV SCH (08:50)
[2019-12-25] MEDS: methylPREDNISolone SOD SUC 40 MG/1 ML VIAL IV SCH (08:50)
[2019-12-25] MEDS: ENOXAPARIN 40 MG/0.4 ML SYRINGE SUBCUT SCH (08:55)
[2019-12-25] MEDS: cefTRIAXone 1,000 MG in SYRINGE 1 EACH IV SCH (13:30)
[2019-12-25] MEDS: ROSUVASTATIN 20 MG TABLET PO SCH (20:58)
[2019-12-26] MEDS: ALBUTEROL/IPRATROPIUM 3 ML NEB RESP TX SCH ×4 (01:46→19:34)
[2019-12-26] MEDS: DEXMEDETOMIDINE 400 MCG in SODIUM CHLORIDE 0.9% 96 ML IV PRN ×2 (03:11→11:00)
[2019-12-26 03:57] LABS: ABG Base Excess 3.1 MMOL/L (-2.5-2.5); ABG HCO3 26.5 MMOL/L (20-26); ABG Oxygen Saturation 96.3 % (95-100); ABG PCO2 36.6 MM HG (35-48); ABG PH 7.478 (7.35-7.45); ABG PO2 86.9 MM HG (80-95); ABG TCO2 27.6 MMOL/L (23-27); Allen Test Positive; Pt O2 Delivery Device Ventilator
[2019-12-26] MEDS: chlordiazePOXIDE 25 MG CAPSULE PO SCH ×4 (04:20→22:10)
[2019-12-26 04:35] LABS: Basophils # 0.1 10*3/uL (0.0-0.2); Basophils % 0.5 % (0.0-0.8); Eosinophils # 0.1 10*3/uL (0.0-0.87); Eosinophils % 0.9 % (0.00-10.9); Hematocrit 39.7 VOL% (42.0-52.0); Hemoglobin 12.6 GM/DL (14.0-18.0); Immature Granulocytes % 0.6 %; Immature Granulocytes Absolute 0.08 #; Lymphocytes # 1.8 10*3/uL (1.4-4.0); Lymphocytes % 13.5 % (21.2-54.2); Mean Corpuscular HGB Conc 31.7 GM/DL (32-36); Mean Platelet Volume 10.9 FL (9.6-12.0); Monocytes % 10.3 % (1.7-12.7); Neutrophils % 74.2 % (38.7-73.9); Platelet Count 285 T/CUMM (130-400); Red Blood Count 3.28 MC/CUMM (3.8-5.5); Red Cell Distribution Width 15.1 % (9.3-17.3); White Blood Count 13.2 T/CUMM (4-12)
[2019-12-26 05:12] LABS: Hypochromasia 1+; Macrocytosis 1+; Platelet Estimate Normal
[2019-12-26] MEDS: CLINDAMYCIN INJ 600 MG in PREMIX 1 EACH IV SCH ×3 (05:16→22:14)
[2019-12-26 06:41] LABS: Calcium 9.5 MG/DL (8.5-10.1); Osmolality,Calculated 308.3 MOS/KG (273-304)
[2019-12-26] MEDS: TICAGRELOR 90 MG TABLET PO SCH ×2 (07:40→21:58)
[2019-12-26] MEDS: ASPIRIN CHEW 81 MG TABLET PO SCH (07:40)
[2019-12-26] MEDS: methylPREDNISolone SOD SUC 40 MG/1 ML VIAL IV SCH (07:40)
[2019-12-26] MEDS: carvediloL 6.25 MG TABLET PO SCH ×2 (07:40→17:18)
[2019-12-26] MEDS: MULTIVITAMIN (CENTRUM) TABLET PO SCH (07:40)
[2019-12-26] MEDS: POTASSIUM CHLORIDE 20 MEQ/15 ML UDCUP PER TUBE SCH ×2 (07:40→22:10)
[2019-12-26] MEDS: THIAMINE 100 MG TABLET PO SCH (07:40)
[2019-12-26] MEDS: FOLIC ACID 1 MG TABLET PO SCH (07:40)
[2019-12-26] MEDS: ENOXAPARIN 40 MG/0.4 ML SYRINGE SUBCUT SCH (07:40)
[2019-12-26] MEDS: PANTOPRAZOLE 40 MG VIAL IV SCH (07:40)
[2019-12-26] MEDS: SPIRONOLACTONE 50 MG TABLET PO SCH (07:40)
[2019-12-26] MEDS: INSULIN REGULAR 100 UNIT/ML SUBCUT SCH ×3 (07:49→18:00)
[2019-12-26] MEDS: cefTRIAXone 1,000 MG in SYRINGE 1 EACH IV SCH (14:05)
[2019-12-26] MEDS: SODIUM CHLORIDE 0.9% 1,000 ML IV SCH (16:40)
[2019-12-26] MEDS: ROSUVASTATIN 20 MG TABLET PO SCH (22:10)
[2019-12-27] MEDS: INSULIN REGULAR 100 UNIT/ML SUBCUT SCH ×4 (00:56→17:44)
[2019-12-27] MEDS: ALBUTEROL/IPRATROPIUM 3 ML NEB RESP TX SCH ×4 (02:16→19:29)
[2019-12-27 03:23] LABS: ABG Base Excess 1.8 MMOL/L (-2.5-2.5); ABG HCO3 25.9 MMOL/L (20-26); ABG Oxygen Saturation 95.5 % (95-100); ABG PCO2 36.8 MM HG (35-48); ABG PH 7.448 (7.35-7.45); ABG PO2 76.5 MM HG (80-95); ABG TCO2 21.9 MMOL/L (23-27); Allen Test Positive
[2019-12-27 04:17] LABS: Basophils # 0.1 10*3/uL (0.0-0.2); Basophils % 0.7 % (0.0-0.8); Eosinophils # 0.2 10*3/uL (0.0-0.87); Eosinophils % 0.8 % (0.00-10.9); Hemoglobin 13.2 GM/DL (14.0-18.0); Immature Granulocytes % 0.6 %; Immature Granulocytes Absolute 0.12 #; Lymphocytes # 2.2 10*3/uL (1.4-4.0); Lymphocytes % 10.7 % (21.2-54.2); Mean Corpuscular HGB Conc 32.2 GM/DL (32-36); Mean Corpuscular Volume 117.8 FL (87-102); Mean Platelet Volume 11.1 FL (9.6-12.0); Monocytes % 6.2 % (1.7-12.7); Platelet Count 337 T/CUMM (130-400); Red Blood Count 3.48 MC/CUMM (3.8-5.5); Red Cell Distribution Width 14.9 % (9.3-17.3); White Blood Count 20.4 T/CUMM (4-12)
[2019-12-27] MEDS: chlordiazePOXIDE 25 MG CAPSULE PO SCH ×4 (04:30→21:25)
[2019-12-27 04:42] LABS: Calcium 9.7 MG/DL (8.5-10.1)
[2019-12-27 04:44] LABS: Band Neutrophils 1 % (0-10); Eosinophils 1 % (0-10); Hypochromasia 1+; Lymphocytes 16 % (20-55); Macrocytosis 1+; Segmented Neutrophils 76 % (50-85); Total Cells Counted 100
[2019-12-27 04:45] LABS: Platelet Estimate Normal
[2019-12-27] MEDS: CLINDAMYCIN INJ 600 MG in PREMIX 1 EACH IV SCH ×3 (06:12→21:25)
[2019-12-27] MEDS: FOLIC ACID 1 MG TABLET PO SCH (08:52)
[2019-12-27] MEDS: ENOXAPARIN 40 MG/0.4 ML SYRINGE SUBCUT SCH (08:52)
[2019-12-27] MEDS: MULTIVITAMIN (CENTRUM) TABLET PO SCH (08:53)
[2019-12-27] MEDS: methylPREDNISolone SOD SUC 40 MG/1 ML VIAL IV SCH (08:53)
[2019-12-27] MEDS: THIAMINE 100 MG TABLET PO SCH (08:53)
[2019-12-27] MEDS: POTASSIUM CHLORIDE 20 MEQ/15 ML UDCUP PER TUBE SCH ×3 (08:53→21:25)
[2019-12-27] MEDS: ASPIRIN CHEW 81 MG TABLET PO SCH (08:53)
[2019-12-27] MEDS: carvediloL 6.25 MG TABLET PO SCH ×2 (08:53→17:25)
[2019-12-27] MEDS: PANTOPRAZOLE 40 MG VIAL IV SCH (08:53)
[2019-12-27] MEDS: SPIRONOLACTONE 50 MG TABLET PO SCH (08:53)
[2019-12-27] MEDS: TICAGRELOR 90 MG TABLET PO SCH ×2 (08:53→21:22)
[2019-12-27] MEDS: LORazepam 2 MG/1 ML VIAL IV PRN ×2 (08:54→10:13)
[2019-12-27] MEDS: NICOTINE 21 MG/24 HR PATCH TRANSDERM SCH (10:13)
[2019-12-27] MEDS: SODIUM CHLORIDE 0.9% 1,000 ML IV SCH (12:52)
[2019-12-27] MEDS: cefTRIAXone 1,000 MG in SYRINGE 1 EACH IV SCH (14:30)
[2019-12-27] MEDS: ROSUVASTATIN 20 MG TABLET PO SCH (21:25)
[2019-12-28] MEDS: INSULIN REGULAR 100 UNIT/ML SUBCUT SCH ×5 (00:37→23:51)
[2019-12-28] MEDS: LORazepam 2 MG/1 ML VIAL IV PRN (00:38)
[2019-12-28] MEDS: ALBUTEROL/IPRATROPIUM 3 ML NEB RESP TX SCH ×4 (00:55→18:59)
[2019-12-28 04:46] LABS: ABG HCO3 21.7 MMOL/L (20-26); ABG Oxygen Saturation 92.6 % (95-100); ABG PCO2 30.6 MM HG (35-48); ABG PH 7.469 (7.35-7.45); ABG PO2 64.2 MM HG (80-95); ABG TCO2 22.7 MMOL/L (23-27); Allen Test Positive; Pt O2 Delivery Device Room Air
[2019-12-28] MEDS: chlordiazePOXIDE 25 MG CAPSULE PO SCH ×3 (04:57→18:15)
[2019-12-28] MEDS: CLINDAMYCIN INJ 600 MG in PREMIX 1 EACH IV SCH ×3 (06:27→23:33)
[2019-12-28 07:06] LABS: Basophils # 0.1 10*3/uL (0.0-0.2); Basophils % 0.7 % (0.0-0.8); Eosinophils # 0.4 10*3/uL (0.0-0.87); Eosinophils % 2.4 % (0.00-10.9); Hematocrit 38.2 VOL% (42.0-52.0); Hemoglobin 12.2 GM/DL (14.0-18.0); Immature Granulocytes % 0.6 %; Immature Granulocytes Absolute 0.09 #; Lymphocytes # 1.7 10*3/uL (1.4-4.0); Lymphocytes % 10.6 % (21.2-54.2); Mean Corpuscular HGB Conc 31.9 GM/DL (32-36); Mean Corpuscular Volume 120.1 FL (87-102); Mean Platelet Volume 11.1 FL (9.6-12.0); Monocytes % 4.6 % (1.7-12.7); Neutrophils % 81.1 % (38.7-73.9); Platelet Count 302 T/CUMM (130-400); Red Blood Count 3.18 MC/CUMM (3.8-5.5); Red Cell Distribution Width 14.5 % (9.3-17.3); White Blood Count 16.3 T/CUMM (4-12)
[2019-12-28 07:27] LABS: Calcium 8.8 MG/DL (8.5-10.1)
[2019-12-28 07:28] LABS: Hypochromasia 1+; Macrocytosis 1+
[2019-12-28 07:29] LABS: Platelet Estimate Normal
[2019-12-28] MEDS: carvediloL 6.25 MG TABLET PO SCH ×2 (09:02→18:15)
[2019-12-28] MEDS: NICOTINE 21 MG/24 HR PATCH TRANSDERM SCH (09:02)
[2019-12-28] MEDS: SODIUM CHLORIDE 0.9% 1,000 ML IV SCH ×2 (09:02→23:29)
[2019-12-28] MEDS: POTASSIUM CHLORIDE 20 MEQ/15 ML UDCUP PER TUBE SCH ×2 (09:03→22:25)
[2019-12-28] MEDS: PANTOPRAZOLE 40 MG VIAL IV SCH (09:03)
[2019-12-28] MEDS: SPIRONOLACTONE 50 MG TABLET PO SCH (09:03)
[2019-12-28] MEDS: FOLIC ACID 1 MG TABLET PO SCH (09:03)
[2019-12-28] MEDS: ENOXAPARIN 40 MG/0.4 ML SYRINGE SUBCUT SCH (09:03)
[2019-12-28] MEDS: methylPREDNISolone SOD SUC 40 MG/1 ML VIAL IV SCH (09:03)
[2019-12-28] MEDS: TICAGRELOR 90 MG TABLET PO SCH ×2 (09:03→22:25)
[2019-12-28] MEDS: ASPIRIN CHEW 81 MG TABLET PO SCH (09:03)
[2019-12-28] MEDS: MULTIVITAMIN (CENTRUM) TABLET PO SCH (09:03)
[2019-12-28] MEDS: THIAMINE 100 MG TABLET PO SCH (09:03)
[2019-12-28] MEDS: ZIPRASIDONE 20 MG/1 ML VIAL IM PRN ×2 (12:17→22:25)
[2019-12-28] MEDS: cefTRIAXone 1,000 MG in SYRINGE 1 EACH IV SCH (15:00)
[2019-12-28] MEDS: ROSUVASTATIN 20 MG TABLET PO SCH (22:25)
[2019-12-29] MEDS: ALBUTEROL/IPRATROPIUM 3 ML NEB RESP TX SCH ×4 (00:37→19:25)
[2019-12-29] MEDS: chlordiazePOXIDE 25 MG CAPSULE PO SCH ×3 (01:38→16:32)
[2019-12-29] MEDS: SODIUM CHLORIDE 0.9% 1,000 ML IV SCH (04:55)
[2019-12-29] MEDS: INSULIN REGULAR 100 UNIT/ML SUBCUT SCH ×4 (05:25→23:12)
[2019-12-29 06:12] LABS: Basophils # 0.1 10*3/uL (0.0-0.2); Basophils % 0.6 % (0.0-0.8); Eosinophils # 0.3 10*3/uL (0.0-0.87); Eosinophils % 2.1 % (0.00-10.9); Hematocrit 38.3 VOL% (42.0-52.0); Hemoglobin 12.1 GM/DL (14.0-18.0); Immature Granulocytes % 0.5 %; Immature Granulocytes Absolute 0.07 #; Lymphocytes # 1.8 10*3/uL (1.4-4.0); Lymphocytes % 12.4 % (21.2-54.2); Mean Corpuscular HGB Conc 31.6 GM/DL (32-36); Mean Corpuscular Volume 119.7 FL (87-102); Mean Platelet Volume 11.4 FL (9.6-12.0); Monocytes % 4.6 % (1.7-12.7); Neutrophils % 79.8 % (38.7-73.9); Platelet Count 289 T/CUMM (130-400); Red Cell Distribution Width 14.6 % (9.3-17.3); White Blood Count 14.6 T/CUMM (4-12)
[2019-12-29 06:51] LABS: Calcium 8.8 MG/DL (8.5-10.1); Osmolality,Calculated 301.1 MOS/KG (273-304)
[2019-12-29 06:57] LABS: Hypochromasia 1+; Macrocytosis Slight; Platelet Estimate Adequate
[2019-12-29] MEDS: ENOXAPARIN 40 MG/0.4 ML SYRINGE SUBCUT SCH (09:13)
[2019-12-29] MEDS: carvediloL 6.25 MG TABLET PO SCH ×2 (09:13→16:33)
[2019-12-29] MEDS: NICOTINE 21 MG/24 HR PATCH TRANSDERM SCH (09:13)
[2019-12-29] MEDS: MULTIVITAMIN (CENTRUM) TABLET PO SCH (09:13)
[2019-12-29] MEDS: ASPIRIN CHEW 81 MG TABLET PO SCH (09:13)
[2019-12-29] MEDS: TICAGRELOR 90 MG TABLET PO SCH ×2 (09:13→21:18)
[2019-12-29] MEDS: FOLIC ACID 1 MG TABLET PO SCH (09:13)
[2019-12-29] MEDS: PANTOPRAZOLE 40 MG VIAL IV SCH (09:14)
[2019-12-29] MEDS: POTASSIUM CHLORIDE 20 MEQ/15 ML UDCUP PER TUBE SCH ×2 (09:14→21:18)
[2019-12-29] MEDS: methylPREDNISolone SOD SUC 40 MG/1 ML VIAL IV SCH (09:15)
[2019-12-29] MEDS: THIAMINE 100 MG TABLET PO SCH (09:20)
[2019-12-29] MEDS: cefTRIAXone 1,000 MG in SYRINGE 1 EACH IV SCH (11:11)
[2019-12-29] MEDS: DEXTROSE 5% 1,000 ML IV SCH (11:16)
[2019-12-29] MEDS: ZIPRASIDONE 20 MG/1 ML VIAL IM PRN ×2 (16:43→22:14)
[2019-12-29] MEDS: ROSUVASTATIN 20 MG TABLET PO SCH (21:18)
[2019-12-30] MEDS: ALBUTEROL/IPRATROPIUM 3 ML NEB RESP TX SCH ×4 (00:03→19:41)
[2019-12-30] MEDS: chlordiazePOXIDE 25 MG CAPSULE PO SCH ×3 (01:10→16:38)
[2019-12-30] MEDS: INSULIN REGULAR 100 UNIT/ML SUBCUT SCH ×3 (05:37→19:20)
[2019-12-30 06:01] LABS: Basophils # 0.1 10*3/uL (0.0-0.2); Basophils % 0.7 % (0.0-0.8); Eosinophils # 0.3 10*3/uL (0.0-0.87); Eosinophils % 1.5 % (0.00-10.9); Hematocrit 41.2 VOL% (42.0-52.0); Hemoglobin 13.5 GM/DL (14.0-18.0); Immature Granulocytes % 0.6 %; Lymphocytes # 1.9 10*3/uL (1.4-4.0); Lymphocytes % 11.4 % (21.2-54.2); Mean Corpuscular HGB Conc 32.8 GM/DL (32-36); Mean Corpuscular Volume 116.4 FL (87-102); Monocytes % 4.1 % (1.7-12.7); Neutrophils % 81.7 % (38.7-73.9); Platelet Count 296 T/CUMM (130-400); Red Blood Count 3.54 MC/CUMM (3.8-5.5); Red Cell Distribution Width 14.2 % (9.3-17.3); White Blood Count 16.5 T/CUMM (4-12)
[2019-12-30] MEDS: DEXTROSE 5% 1,000 ML IV SCH (06:37)
[2019-12-30 06:49] LABS: Calcium 9.6 MG/DL (8.5-10.1); Osmolality,Calculated 292.6 MOS/KG (273-304)
[2019-12-30 06:53] LABS: Hypochromasia 1+; Macrocytosis Slight; Platelet Estimate Normal
[2019-12-30] MEDS: POTASSIUM CHLORIDE 20 MEQ/15 ML UDCUP PER TUBE SCH ×2 (08:59→20:17)
[2019-12-30] MEDS: ASPIRIN CHEW 81 MG TABLET PO SCH (09:00)
[2019-12-30] MEDS: THIAMINE 100 MG TABLET PO SCH (09:00)
[2019-12-30] MEDS: MULTIVITAMIN (CENTRUM) TABLET PO SCH (09:00)
[2019-12-30] MEDS: PANTOPRAZOLE 40 MG VIAL IV SCH (09:00)
[2019-12-30] MEDS: predniSONE 10 MG TABLET PO SCH (09:00)
[2019-12-30] MEDS: ENOXAPARIN 40 MG/0.4 ML SYRINGE SUBCUT SCH (09:00)
[2019-12-30] MEDS: FOLIC ACID 1 MG TABLET PO SCH (09:00)
[2019-12-30] MEDS: NICOTINE 21 MG/24 HR PATCH TRANSDERM SCH (09:01)
[2019-12-30] MEDS: carvediloL 6.25 MG TABLET PO SCH ×2 (09:02→16:38)
[2019-12-30] MEDS: TICAGRELOR 90 MG TABLET PO SCH ×2 (09:02→20:17)
[2019-12-30] MEDS: cefTRIAXone 1,000 MG in SYRINGE 1 EACH IV SCH (11:44)
[2019-12-30] MEDS ORDERED: diphenhydrAMINE CAP 25 MG CAPSULE PO PRN (16:06)
[2019-12-30] MEDS: ZIPRASIDONE 20 MG/1 ML VIAL IM PRN (19:52)
[2019-12-30] MEDS: ROSUVASTATIN 20 MG TABLET PO SCH (20:17)
[2019-12-31] MEDS ORDERED: ACETAMINOPHEN 325 MG TABLET PO PRN (00:45)
[2019-12-31] MEDS: ALBUTEROL/IPRATROPIUM 3 ML NEB RESP TX SCH ×4 (01:00→19:19)
[2019-12-31] MEDS: chlordiazePOXIDE 25 MG CAPSULE PO SCH ×3 (01:16→16:11)
[2019-12-31] MEDS: INSULIN REGULAR 100 UNIT/ML SUBCUT SCH ×4 (01:42→17:38)
[2019-12-31] MEDS: DEXTROSE 5% 1,000 ML IV SCH ×2 (01:51→20:46)
[2019-12-31 06:51] LABS: Basophils # 0.1 10*3/uL (0.0-0.2); Basophils % 1.1 % (0.0-0.8); Eosinophils # 0.4 10*3/uL (0.0-0.87); Eosinophils % 2.8 % (0.00-10.9); Hematocrit 37.9 VOL% (42.0-52.0); Hemoglobin 12.6 GM/DL (14.0-18.0); Immature Granulocytes % 0.4 %; Immature Granulocytes Absolute 0.05 #; Lymphocytes % 15.6 % (21.2-54.2); Mean Corpuscular HGB Conc 33.2 GM/DL (32-36); Mean Corpuscular Volume 114.8 FL (87-102); Mean Platelet Volume 11.3 FL (9.6-12.0); Monocytes % 4.2 % (1.7-12.7); Neutrophils % 75.9 % (38.7-73.9); Platelet Count 235 T/CUMM (130-400); Red Cell Distribution Width 14.6 % (9.3-17.3); White Blood Count 12.6 T/CUMM (4-12)
[2019-12-31 07:12] LABS: Calcium 8.6 MG/DL (8.5-10.1)
[2019-12-31 07:40] LABS: Hypochromasia 1+; Macrocytosis Slight; Platelet Estimate Normal
[2019-12-31] MEDS: ENOXAPARIN 40 MG/0.4 ML SYRINGE SUBCUT SCH (09:17)
[2019-12-31] MEDS: NICOTINE 21 MG/24 HR PATCH TRANSDERM SCH (09:17)
[2019-12-31] MEDS: PANTOPRAZOLE 40 MG VIAL IV SCH (09:18)
[2019-12-31] MEDS: TICAGRELOR 90 MG TABLET PO SCH ×2 (09:28→20:44)
[2019-12-31] MEDS: FOLIC ACID 1 MG TABLET PO SCH (09:28)
[2019-12-31] MEDS: MULTIVITAMIN (CENTRUM) TABLET PO SCH (09:28)
[2019-12-31] MEDS: carvediloL 6.25 MG TABLET PO SCH ×2 (09:29→16:10)
[2019-12-31] MEDS: predniSONE 10 MG TABLET PO SCH (09:29)
[2019-12-31] MEDS: THIAMINE 100 MG TABLET PO SCH (09:29)
[2019-12-31] MEDS: ASPIRIN CHEW 81 MG TABLET PO SCH (09:29)
[2019-12-31] MEDS: POTASSIUM CHLORIDE 20 MEQ/15 ML UDCUP PER TUBE SCH ×2 (09:30→20:44)
[2019-12-31] MEDS: cefTRIAXone 1,000 MG in SYRINGE 1 EACH IV SCH (11:19)
[2019-12-31] MEDS: ROSUVASTATIN 20 MG TABLET PO SCH (20:44)
[2020-01-01] MEDS: ALBUTEROL/IPRATROPIUM 3 ML NEB RESP TX SCH ×4 (01:41→20:18)
[2020-01-01] MEDS: INSULIN REGULAR 100 UNIT/ML SUBCUT SCH ×5 (02:12→23:34)
[2020-01-01] MEDS: chlordiazePOXIDE 25 MG CAPSULE PO SCH ×3 (02:14→17:46)
[2020-01-01 06:27] LABS: Basophils # 0.2 10*3/uL (0.0-0.2); Basophils % 1.1 % (0.0-0.8); Eosinophils # 0.4 10*3/uL (0.0-0.87); Eosinophils % 2.7 % (0.00-10.9); Hematocrit 34.4 VOL% (42.0-52.0); Hemoglobin 11.3 GM/DL (14.0-18.0); Immature Granulocytes % 0.7 %; Immature Granulocytes Absolute 0.09 #; Lymphocytes % 15.1 % (21.2-54.2); Mean Corpuscular HGB Conc 32.8 GM/DL (32-36); Mean Corpuscular Volume 116.2 FL (87-102); Mean Platelet Volume 11.6 FL (9.6-12.0); Monocytes % 4.3 % (1.7-12.7); Neutrophils % 76.1 % (38.7-73.9); Platelet Count 233 T/CUMM (130-400); Red Blood Count 2.96 MC/CUMM (3.8-5.5); Red Cell Distribution Width 14.4 % (9.3-17.3); White Blood Count 13.1 T/CUMM (4-12)
[2020-01-01 06:50] LABS: Calcium 8.9 MG/DL (8.5-10.1); Osmolality,Calculated 278.4 MOS/KG (273-304)
[2020-01-01 06:51] LABS: Platelet Estimate Normal
[2020-01-01 06:52] LABS: Anisocytosis 2+; Macrocytosis Slight
[2020-01-01] MEDS: ASPIRIN CHEW 81 MG TABLET PO SCH (09:17)
[2020-01-01] MEDS: THIAMINE 100 MG TABLET PO SCH (09:17)
[2020-01-01] MEDS: predniSONE 10 MG TABLET PO SCH (09:17)
[2020-01-01] MEDS: NICOTINE 21 MG/24 HR PATCH TRANSDERM SCH (09:17)
[2020-01-01] MEDS: carvediloL 6.25 MG TABLET PO SCH ×2 (09:17→17:33)
[2020-01-01] MEDS: MULTIVITAMIN (CENTRUM) TABLET PO SCH (09:17)
[2020-01-01] MEDS: FOLIC ACID 1 MG TABLET PO SCH (09:17)
[2020-01-01] MEDS: TICAGRELOR 90 MG TABLET PO SCH ×2 (09:17→21:38)
[2020-01-01] MEDS: ENOXAPARIN 40 MG/0.4 ML SYRINGE SUBCUT SCH (09:18)
[2020-01-01] MEDS: PANTOPRAZOLE 40 MG VIAL IV SCH (09:18)
[2020-01-01] MEDS: POTASSIUM CHLORIDE 20 MEQ/15 ML UDCUP PER TUBE SCH ×2 (09:32→21:39)
[2020-01-01] MEDS ORDERED: diphenhydrAMINE CAP 25 MG CAPSULE PO PRN (09:40)
[2020-01-01] MEDS ORDERED: MAGNESIUM HYDROXIDE SUSP 30 ML UDCUP PO PRN (09:41)
[2020-01-01] MEDS ORDERED: carvediloL 3.125 MG TABLET PO SCH (17:27)
[2020-01-01] MEDS: carvediloL 3.125 MG TABLET PO SCH (17:46)
[2020-01-01] MEDS: DEXTROSE 5% 1,000 ML IV SCH (19:38)
[2020-01-01] MEDS: ROSUVASTATIN 20 MG TABLET PO SCH (21:38)
[2020-01-01] MEDS: ZIPRASIDONE 20 MG/1 ML VIAL IM PRN (23:36)
[2020-01-02] MEDS: ALBUTEROL/IPRATROPIUM 3 ML NEB RESP TX SCH ×4 (00:36→19:52)
[2020-01-02] MEDS: chlordiazePOXIDE 25 MG CAPSULE PO SCH ×3 (00:50→21:52)
[2020-01-02 05:24] LABS: Basophils # 0.1 10*3/uL (0.0-0.2); Basophils % 1.1 % (0.0-0.8); Eosinophils # 0.3 10*3/uL (0.0-0.87); Eosinophils % 2.9 % (0.00-10.9); Hematocrit 36.9 VOL% (42.0-52.0); Hemoglobin 12.4 GM/DL (14.0-18.0); Immature Granulocytes % 0.8 %; Immature Granulocytes Absolute 0.09 #; Lymphocytes # 1.8 10*3/uL (1.4-4.0); Lymphocytes % 17.2 % (21.2-54.2); Mean Corpuscular HGB Conc 33.6 GM/DL (32-36); Mean Corpuscular Volume 114.2 FL (87-102); Mean Platelet Volume 11.7 FL (9.6-12.0); Monocytes % 5.3 % (1.7-12.7); Neutrophils % 72.7 % (38.7-73.9); Platelet Count 225 T/CUMM (130-400); Red Blood Count 3.23 MC/CUMM (3.8-5.5); Red Cell Distribution Width 14.3 % (9.3-17.3); White Blood Count 10.6 T/CUMM (4-12)
[2020-01-02 05:36] LABS: Calcium 9.3 MG/DL (8.5-10.1); Osmolality,Calculated 281.1 MOS/KG (273-304)
[2020-01-02] MEDS: INSULIN REGULAR 100 UNIT/ML SUBCUT SCH ×3 (06:21→17:44)
[2020-01-02] MEDS: TICAGRELOR 90 MG TABLET PO SCH (08:52)
[2020-01-02] MEDS: ENOXAPARIN 40 MG/0.4 ML SYRINGE SUBCUT SCH (08:53)
[2020-01-02] MEDS: POTASSIUM CHLORIDE 20 MEQ/15 ML UDCUP PER TUBE SCH ×2 (08:53→21:52)
[2020-01-02] MEDS: carvediloL 3.125 MG TABLET PO SCH ×2 (08:53→16:25)
[2020-01-02] MEDS: NICOTINE 21 MG/24 HR PATCH TRANSDERM SCH (08:53)
[2020-01-02] MEDS: ASPIRIN CHEW 81 MG TABLET PO SCH (08:54)
[2020-01-02] MEDS: THIAMINE 100 MG TABLET PO SCH (08:54)
[2020-01-02] MEDS: predniSONE 10 MG TABLET PO SCH (08:54)
[2020-01-02] MEDS: MULTIVITAMIN (CENTRUM) TABLET PO SCH (08:54)
[2020-01-02] MEDS: FOLIC ACID 1 MG TABLET PO SCH (08:54)
[2020-01-02] MEDS: PANTOPRAZOLE 40 MG VIAL IV SCH (08:55)
[2020-01-02 11:48] LABS: Apearance,Urine CLEAR (Clear); Bacteria,Urine Occasional /HPF (Few); Bilirubin,Urine Negative (Negative); Blood, Urine Large mg/dL (Negative); Glucose,Urine (UA) Negative (Negative); Ketones,Urine Negative (Negative); Mucus,Urine Moderate /LPF (Occasional); Nitrite,Urine Negative (Negative); Protein,Urine Negative; RBC,Urine 79 /HPF (0-4); Urine Color Yellow (Yellow); Urine Specific Gravity 1.009 (1.001-1.035); WBC,Urine 12 /HPF (0-6)
[2020-01-02] MEDS ORDERED: CLOPIDOGREL 300 MG TABLET PO ONE (12:43)
[2020-01-02] MEDS ORDERED: carvediloL 3.125 MG TABLET PO SCH (17:05)
[2020-01-02] MEDS: ROSUVASTATIN 20 MG TABLET PO SCH (21:53)
[2020-01-03] MEDS: ALBUTEROL/IPRATROPIUM 3 ML NEB RESP TX SCH ×3 (01:10→12:10)
[2020-01-03] MEDS: INSULIN REGULAR 100 UNIT/ML SUBCUT SCH ×3 (01:21→12:35)
[2020-01-03 06:17] LABS: Basophils # 0.1 10*3/uL (0.0-0.2); Eosinophils # 0.3 10*3/uL (0.0-0.87); Hematocrit 35.5 VOL% (42.0-52.0); Hemoglobin 11.9 GM/DL (14.0-18.0); Immature Granulocytes % 0.9 %; Immature Granulocytes Absolute 0.09 #; Lymphocytes # 1.9 10*3/uL (1.4-4.0); Lymphocytes % 18.3 % (21.2-54.2); Mean Corpuscular HGB Conc 33.5 GM/DL (32-36); Mean Corpuscular Volume 113.4 FL (87-102); Mean Platelet Volume 11.6 FL (9.6-12.0); Monocytes % 6.2 % (1.7-12.7); Neutrophils % 70.6 % (38.7-73.9); Platelet Count 222 T/CUMM (130-400); Red Blood Count 3.13 MC/CUMM (3.8-5.5); Red Cell Distribution Width 14.4 % (9.3-17.3); White Blood Count 10.4 T/CUMM (4-12)
[2020-01-03 06:36] LABS: Hypochromasia 1+; Platelet Estimate Adequate
[2020-01-03 06:50] LABS: Calcium 9.4 MG/DL (8.5-10.1); Osmolality,Calculated 279.3 MOS/KG (273-304)
[2020-01-03] MEDS: carvediloL 3.125 MG TABLET PO SCH (08:51)
[2020-01-03] MEDS ORDERED: CLOPIDOGREL 75 MG TABLET PO SCH (09:00)
[2020-01-03] MEDS: NICOTINE 21 MG/24 HR PATCH TRANSDERM SCH (09:47)
[2020-01-03] MEDS: PANTOPRAZOLE 40 MG VIAL IV SCH (09:47)
[2020-01-03] MEDS: ENOXAPARIN 40 MG/0.4 ML SYRINGE SUBCUT SCH (09:48)
[2020-01-03] MEDS: POTASSIUM CHLORIDE 20 MEQ/15 ML UDCUP PER TUBE SCH (09:48)
[2020-01-03] MEDS: ASPIRIN CHEW 81 MG TABLET PO SCH (09:49)
[2020-01-03] MEDS: chlordiazePOXIDE 25 MG CAPSULE PO SCH (09:49)
[2020-01-03] MEDS: FOLIC ACID 1 MG TABLET PO SCH (09:49)
[2020-01-03] MEDS: MULTIVITAMIN (CENTRUM) TABLET PO SCH (09:49)
[2020-01-03] MEDS: predniSONE 10 MG TABLET PO SCH (09:49)
[2020-01-03] MEDS: THIAMINE 100 MG TABLET PO SCH (09:49)
[2020-01-03] MEDS ORDERED: ALBUTEROL 2.5 MG/3 ML NEB RESP TX PRN (11:00)
[2020-01-03 12:01] VITALS: BP 102/75
== END 2020-01-03 15:15 | disposition home or self-care (01) | DRG 246 ==
LOC: EDBD → EDUNIT# → N.ED 20:43 → N.EDINP 21:35 → N.ICU 21:56 → N.TELEN 12-28 19:44
PROVIDERS: ADMIT Internal Medicine Cardiovascular Disease; ATTEND Internal Medicine Cardiovascular Disease

== ENCOUNTER 2020-01-04 13:08 | Observation (INO) ==
[2020-01-04 13:59] LABS: Basophils # 0.1 10*3/uL (0.0-0.2); Basophils % 1.2 % (0.0-0.8); Eosinophils # 0.3 10*3/uL (0.0-0.87); Eosinophils % 2.8 % (0.00-10.9); Hemoglobin 12.8 GM/DL (14.0-18.0); Immature Granulocytes % 0.6 %; Immature Granulocytes Absolute 0.05 #; Lymphocytes # 1.4 10*3/uL (1.4-4.0); Lymphocytes % 15.6 % (21.2-54.2); Mean Corpuscular HGB Conc 33.7 GM/DL (32-36); Mean Corpuscular Volume 113.4 FL (87-102); Mean Platelet Volume 11.1 FL (9.6-12.0); Neutrophils % 72.8 % (38.7-73.9); Platelet Count 224 T/CUMM (130-400); Red Blood Count 3.35 MC/CUMM (3.8-5.5); Red Cell Distribution Width 14.6 % (9.3-17.3)
[2020-01-04 14:18] LABS: Alanine Aminotransferase 358 U/L (16-61); Albumin 3.1 G/DL (3.4-5.0); Alkaline Phosphatase 198 U/L (45-117); Aspartate Amino Transferase 295 U/L (0-37); Blood Urea Nitrogen 12 MG/DL (7-18); Calcium 9.4 MG/DL (8.5-10.1); Estimated Glom Filtration Rate 105 ML/MIN; Glucose 87 MG/DL (74-106); Osmolality,Calculated 279.3 MOS/KG (273-304); Total Protein 6.7 G/DL (6.4-8.3)
[2020-01-04 14:45] LABS: Barbiturates Screen,Urine Negative (Negative); Benzodiazepines Screen,Urine Positive (Negative); Cannabinoid Screen,Urine Negative (Negative); Opiate Screen,Urine Negative (Negative); Phencyclidine Screen,Urine Negative (Negative)
[2020-01-04] MEDS ORDERED: ACETAMINOPHEN 325 MG TABLET PO PRN (16:37)
[2020-01-04] MEDS ORDERED: ONDANSETRON 4 MG/2 ML VIAL IV PRN (16:37)
[2020-01-04] MEDS ORDERED: GLUCAGON 1 MG VIAL IM PRN (16:37)
[2020-01-04] MEDS ORDERED: hydrALAZINE 20 MG/1 ML VIAL IV PRN (16:37)
[2020-01-04] MEDS ORDERED: DOCUSATE SODIUM 100 MG CAPSULE PO PRN (16:37)
[2020-01-04] MEDS ORDERED: LACTULOSE 20 GM/30 ML UDCUP PO PRN (16:37)
[2020-01-04] MEDS ORDERED: DEXTROSE 50% 25 GM/50 ML VIAL IV PRN (16:37)
[2020-01-04] MEDS ORDERED: PROMETHAZINE 25 MG/1 ML VIAL IM PRN (16:37)
[2020-01-04] MEDS ORDERED: LORazepam 2 MG/1 ML VIAL IV PRN (16:37)
[2020-01-04] MEDS ORDERED: chlordiazePOXIDE 25 MG CAPSULE PO SCH (17:00)
[2020-01-04] MEDS: carvediloL 3.125 MG TABLET PO SCH (18:02)
[2020-01-04] MEDS: DEXTROSE 5% NACL 0.45% 1,000 ML IV SCH (18:02)
[2020-01-04] MEDS: ATORVASTATIN 40 MG TABLET PO SCH (21:28)
[2020-01-04] MEDS: chlordiazePOXIDE 10 MG CAPSULE PO SCH (21:29)
[2020-01-04] MEDS: ENOXAPARIN 40 MG/0.4 ML SYRINGE SUBCUT SCH (21:29)
[2020-01-05 04:29] LABS: Basophils # 0.1 10*3/uL (0.0-0.2); Basophils % 1.5 % (0.0-0.8); Eosinophils # 0.2 10*3/uL (0.0-0.87); Eosinophils % 3.2 % (0.00-10.9); Hematocrit 33.9 VOL% (42.0-52.0); Hemoglobin 11.4 GM/DL (14.0-18.0); Immature Granulocytes % 0.8 %; Immature Granulocytes Absolute 0.06 #; Lymphocytes # 1.7 10*3/uL (1.4-4.0); Lymphocytes % 22.6 % (21.2-54.2); Mean Corpuscular HGB Conc 33.6 GM/DL (32-36); Mean Corpuscular Volume 113.4 FL (87-102); Monocytes % 6.6 % (1.7-12.7); Neutrophils % 65.3 % (38.7-73.9); Platelet Count 215 T/CUMM (130-400); Red Blood Count 2.99 MC/CUMM (3.8-5.5); Red Cell Distribution Width 14.4 % (9.3-17.3); White Blood Count 7.6 T/CUMM (4-12)
[2020-01-05 04:52] LABS: Albumin 2.6 G/DL (3.4-5.0); Calcium 8.7 MG/DL (8.5-10.1); Osmolality,Calculated 277.4 MOS/KG (273-304); Total Protein 6.2 G/DL (6.4-8.3)
[2020-01-05 04:56] LABS: Hypochromasia 1+; Platelet Estimate Adequate
[2020-01-05] MEDS: PANTOPRAZOLE 40 MG TABLET PO SCH (08:56)
[2020-01-05] MEDS: FOLIC ACID 1 MG TABLET PO SCH (08:56)
[2020-01-05] MEDS: CLOPIDOGREL 75 MG TABLET PO SCH (08:56)
[2020-01-05] MEDS: chlordiazePOXIDE 10 MG CAPSULE PO SCH (08:56)
[2020-01-05] MEDS: carvediloL 3.125 MG TABLET PO SCH ×2 (08:56→17:22)
[2020-01-05] MEDS: ASPIRIN EC 81 MG TABLET PO SCH (08:56)
[2020-01-05] MEDS: DEXTROSE 5% NACL 0.45% 1,000 ML IV SCH (09:03)
[2020-01-05] MEDS ORDERED: MAGNESIUM SULF RIDER 4 GM in PREMIX 1 EACH IV PRN (10:52)
[2020-01-05] MEDS: POTASSIUM CHLORIDE 20 MEQ TABLET PO PRN ×2 (11:52→13:55)
[2020-01-05] MEDS: MAGNESIUM SULF RIDER 2 GM in PREMIX 1 EACH IV PRN (11:53)
[2020-01-05] MEDS ORDERED: chlordiazePOXIDE 10 MG CAPSULE PO SCH (21:00)
[2020-01-05] MEDS: ENOXAPARIN 40 MG/0.4 ML SYRINGE SUBCUT SCH (21:44)
[2020-01-05] MEDS: ATORVASTATIN 40 MG TABLET PO SCH (21:44)
[2020-01-06] MEDS: DEXTROSE 5% NACL 0.45% 1,000 ML IV SCH ×2 (01:16→18:04)
[2020-01-06 05:26] LABS: Basophils # 0.1 10*3/uL (0.0-0.2); Basophils % 1.5 % (0.0-0.8); Eosinophils # 0.2 10*3/uL (0.0-0.87); Eosinophils % 2.5 % (0.00-10.9); Hematocrit 34.2 VOL% (42.0-52.0); Hemoglobin 11.5 GM/DL (14.0-18.0); Immature Granulocytes % 0.4 %; Immature Granulocytes Absolute 0.03 #; Lymphocytes # 1.2 10*3/uL (1.4-4.0); Lymphocytes % 18.1 % (21.2-54.2); Mean Corpuscular HGB Conc 33.6 GM/DL (32-36); Mean Corpuscular Volume 111.8 FL (87-102); Mean Platelet Volume 10.9 FL (9.6-12.0); Monocytes % 6.9 % (1.7-12.7); Neutrophils % 70.6 % (38.7-73.9); Platelet Count 213 T/CUMM (130-400); Red Blood Count 3.06 MC/CUMM (3.8-5.5); Red Cell Distribution Width 14.1 % (9.3-17.3); White Blood Count 6.8 T/CUMM (4-12)
[2020-01-06 05:54] LABS: Albumin 2.6 G/DL (3.4-5.0); Calcium 8.8 MG/DL (8.5-10.1); Osmolality,Calculated 277.4 MOS/KG (273-304); Total Protein 6.3 G/DL (6.4-8.3)
[2020-01-06] MEDS: carvediloL 3.125 MG TABLET PO SCH ×2 (08:38→16:21)
[2020-01-06] MEDS: ASPIRIN EC 81 MG TABLET PO SCH (08:53)
[2020-01-06] MEDS: CLOPIDOGREL 75 MG TABLET PO SCH (08:53)
[2020-01-06] MEDS: PANTOPRAZOLE 40 MG TABLET PO SCH (08:53)
[2020-01-06] MEDS: POTASSIUM CHLORIDE 20 MEQ TABLET PO PRN (08:53)
[2020-01-06] MEDS: FOLIC ACID 1 MG TABLET PO SCH (08:53)
[2020-01-06] MEDS: MAGNESIUM SULF RIDER 2 GM in PREMIX 1 EACH IV PRN (08:53)
[2020-01-06] MEDS ORDERED: chlordiazePOXIDE 10 MG CAPSULE PO ONE (09:00)
[2020-01-06] MEDS: NICOTINE 21 MG/24 HR PATCH TRANSDERM SCH (12:29)
[2020-01-06] MEDS: ENOXAPARIN 40 MG/0.4 ML SYRINGE SUBCUT SCH (20:48)
[2020-01-06] MEDS: ATORVASTATIN 40 MG TABLET PO SCH (20:48)
[2020-01-07] MEDS: DEXTROSE 5% NACL 0.45% 1,000 ML IV SCH (05:51)
[2020-01-07 06:04] LABS: Basophils # 0.1 10*3/uL (0.0-0.2); Basophils % 1.3 % (0.0-0.8); Eosinophils # 0.2 10*3/uL (0.0-0.87); Eosinophils % 2.7 % (0.00-10.9); Hematocrit 34.6 VOL% (42.0-52.0); Hemoglobin 11.3 GM/DL (14.0-18.0); Immature Granulocytes % 0.6 %; Immature Granulocytes Absolute 0.05 #; Lymphocytes # 1.9 10*3/uL (1.4-4.0); Lymphocytes % 23.9 % (21.2-54.2); Mean Corpuscular HGB Conc 32.7 GM/DL (32-36); Mean Corpuscular Volume 115.7 FL (87-102); Mean Platelet Volume 11.1 FL (9.6-12.0); Monocytes % 7.6 % (1.7-12.7); Neutrophils % 63.9 % (38.7-73.9); Platelet Count 223 T/CUMM (130-400); Red Blood Count 2.99 MC/CUMM (3.8-5.5); Red Cell Distribution Width 14.3 % (9.3-17.3); White Blood Count 7.7 T/CUMM (4-12)
[2020-01-07 06:27] LABS: Albumin 2.7 G/DL (3.4-5.0); Bilirubin,Total 0.9 MG/DL (0.2-1.0); Calcium 8.6 MG/DL (8.5-10.1); Osmolality,Calculated 276.4 MOS/KG (273-304); Total Protein 6.6 G/DL (6.4-8.3)
[2020-01-07 07:16] LABS: Ovalocytes Few
[2020-01-07 07:17] LABS: Anisocytosis 2+; Macrocytosis 1+; Microcytosis 1+; Platelet Estimate Normal; Polychromasia Slight
[2020-01-07] MEDS: FOLIC ACID 1 MG TABLET PO SCH (09:07)
[2020-01-07] MEDS: carvediloL 3.125 MG TABLET PO SCH ×2 (09:07→18:03)
[2020-01-07] MEDS: PANTOPRAZOLE 40 MG TABLET PO SCH (09:07)
[2020-01-07] MEDS: POTASSIUM CHLORIDE 20 MEQ TABLET PO PRN (09:07)
[2020-01-07] MEDS: CLOPIDOGREL 75 MG TABLET PO SCH (09:07)
[2020-01-07] MEDS: MAGNESIUM SULF RIDER 2 GM in PREMIX 1 EACH IV PRN (09:07)
[2020-01-07] MEDS: ASPIRIN EC 81 MG TABLET PO SCH (09:07)
[2020-01-07] MEDS: NICOTINE 21 MG/24 HR PATCH TRANSDERM SCH (09:07)
[2020-01-07] MEDS: ATORVASTATIN 40 MG TABLET PO SCH (20:27)
[2020-01-07] MEDS: ENOXAPARIN 40 MG/0.4 ML SYRINGE SUBCUT SCH (20:27)
[2020-01-08 06:24] LABS: Basophils # 0.1 10*3/uL (0.0-0.2); Basophils % 1.3 % (0.0-0.8); Eosinophils # 0.2 10*3/uL (0.0-0.87); Eosinophils % 2.9 % (0.00-10.9); Hematocrit 33.4 VOL% (42.0-52.0); Hemoglobin 11.1 GM/DL (14.0-18.0); Immature Granulocytes % 0.4 %; Immature Granulocytes Absolute 0.03 #; Lymphocytes # 1.7 10*3/uL (1.4-4.0); Lymphocytes % 23.1 % (21.2-54.2); Mean Corpuscular HGB Conc 33.2 GM/DL (32-36); Mean Corpuscular Volume 113.2 FL (87-102); Mean Platelet Volume 10.9 FL (9.6-12.0); Monocytes % 6.7 % (1.7-12.7); Neutrophils % 65.6 % (38.7-73.9); Platelet Count 193 T/CUMM (130-400); Red Blood Count 2.95 MC/CUMM (3.8-5.5); Red Cell Distribution Width 14.3 % (9.3-17.3); White Blood Count 7.2 T/CUMM (4-12)
[2020-01-08 06:44] LABS: Albumin 2.6 G/DL (3.4-5.0); Calcium 8.8 MG/DL (8.5-10.1); Osmolality,Calculated 278.1 MOS/KG (273-304); Total Protein 6.2 G/DL (6.4-8.3)
[2020-01-08 06:55] LABS: Hypochromasia 1+; Microcytosis 1+; Platelet Estimate Adequate
[2020-01-08] MEDS: CLOPIDOGREL 75 MG TABLET PO SCH (08:48)
[2020-01-08] MEDS: PANTOPRAZOLE 40 MG TABLET PO SCH (08:48)
[2020-01-08] MEDS: ASPIRIN EC 81 MG TABLET PO SCH (08:48)
[2020-01-08] MEDS: NICOTINE 21 MG/24 HR PATCH TRANSDERM SCH (08:48)
[2020-01-08] MEDS: carvediloL 3.125 MG TABLET PO SCH (08:48)
[2020-01-08] MEDS: FOLIC ACID 1 MG TABLET PO SCH (08:48)
[2020-01-08] MEDS ORDERED: LORazepam 2 MG/1 ML VIAL IV PRN (11:18)
[2020-01-08 14:15] VITALS: BP 129/90
[2020-01-08] MEDS ORDERED: THIAMINE 100 MG TABLET PO SCH (21:00)
== END 2020-01-08 15:19 | disposition home health service (06) ==
LOC: EDBD → EDUNIT# → N.ED 13:08 → N.EDINP 13:08 → N.TELEN 17:08
PROVIDERS: ADMIT Internal Medicine; ATTEND Internal Medicine

== ENCOUNTER 2020-04-16 22:15 | Inpatient (IN) ==
[2020-04-16] MEDS ORDERED: FOLIC ACID INJ 1 MG in SYRINGE 1 EACH IV ONE (22:41)
[2020-04-16 23:09] LABS: Basophils # 0.1 10*3/uL (0.0-0.2); Basophils % 1.3 % (0.0-0.8); Eosinophils # 0.2 10*3/uL (0.0-0.87); Eosinophils % 2.5 % (0.00-10.9); Hematocrit 40.9 VOL% (42.0-52.0); Hemoglobin 13.5 GM/DL (14.0-18.0); Immature Granulocytes % 0.4 %; Immature Granulocytes Absolute 0.03 #; Lymphocytes # 1.9 10*3/uL (1.4-4.0); Lymphocytes % 26.8 % (21.2-54.2); Mean Corpuscular Volume 113.9 FL (87-102); Mean Platelet Volume 10.3 FL (9.6-12.0); Monocytes % 5.8 % (1.7-12.7); Neutrophils % 63.2 % (38.7-73.9); Platelet Count 169 T/CUMM (130-400); Red Blood Count 3.59 MC/CUMM (3.8-5.5); Red Cell Distribution Width 16.1 % (9.3-17.3); White Blood Count 6.9 T/CUMM (4-12)
[2020-04-16 23:13] LABS: Acetaminophen < 2.0 UG/ML (10-30); Salicylate < 2.8 MG/DL (2.8-20)
[2020-04-16 23:14] LABS: Alanine Aminotransferase 52 U/L (16-61); Albumin 3.4 G/DL (3.4-5.0); Alkaline Phosphatase 145 U/L (45-117); Aspartate Amino Transferase 76 U/L (0-37); Blood Urea Nitrogen 13 MG/DL (7-18); Calcium 8.5 MG/DL (8.5-10.1); Estimated Glom Filtration Rate 94 ML/MIN; Glucose 100 MG/DL (74-106); Osmolality,Calculated 282.1 MOS/KG (273-304); Total Protein 7.6 G/DL (6.4-8.3); Troponin I 0.019 NG/ML (0.00-0.045)
[2020-04-16] MEDS ORDERED: SODIUM CHLORIDE 0.9% 500 ML IV STA (23:15)
[2020-04-16 23:19] LABS: INR 1.1; PT Patient Result 11.9 SECS (9.8-11.9)
[2020-04-16 23:27] LABS: ABG Base Excess -6.5 MMOL/L (-2.5-2.5); ABG HCO3 19.2 MMOL/L (20-26); ABG Oxygen Saturation 96.4 % (95-100); ABG TCO2 23.4 MMOL/L (23-27); Allen Test Positive
[2020-04-16 23:29] LABS: ABG PCO2 77.9 MM HG (35-48); ABG PH 7.127 (7.35-7.45)
[2020-04-17 00:22] LABS: ABG HCO3 24.1 MMOL/L (20-26); ABG PO2 175.3 MM HG (80-95); ABG TCO2 26.3 MMOL/L (23-27); Allen Test Positive
[2020-04-17 00:26] LABS: ABG Oxygen Saturation 98.7 % (95-100)
[2020-04-17 00:29] LABS: ABG PH 7.161 (7.35-7.45)
[2020-04-17 00:30] LABS: ABG PCO2 69.1 MM HG (35-48)
[2020-04-17] MEDS ORDERED: LEVOFLOXACIN INJ 750 MG in PREMIX 1 EACH IV STA (00:31)
[2020-04-17] MEDS ORDERED: VANCOMYCIN INJ 1,000 MG in SODIUM CHLORIDE 0.9% 250 ML IV STA (00:31)
[2020-04-17 00:53] LABS: Bacteria,Urine Occasional /HPF (Few); Bilirubin,Urine Negative (Negative); Blood, Urine Moderate mg/dL (Negative); Glucose,Urine (UA) Negative (Negative); Hyaline Casts,Urine 7 /LPF (0-3); Ketones,Urine Negative (Negative); Mucus,Urine Occasional /LPF (Occasional); Nitrite,Urine Negative (Negative); Protein,Urine 30 MG/DL; RBC,Urine 31 /HPF (0-4); Urine Appearance CLEAR (Clear); Urine Color Amber (Yellow); Urine Specific Gravity 1.019 (1.001-1.035); WBC,Urine 2 /HPF (0-6)
[2020-04-17 01:01] LABS: Barbiturates Screen,Urine Negative (Negative); Benzodiazepines Screen,Urine Positive (Negative); Cannabinoid Screen,Urine Negative (Negative); Opiate Screen,Urine Negative (Negative); Phencyclidine Screen,Urine Negative (Negative)
[2020-04-17] MEDS ORDERED: LORazepam 2 MG/1 ML VIAL IV PRN (01:43)
[2020-04-17] MEDS ORDERED: ONDANSETRON 4 MG/2 ML VIAL IV PRN (01:43)
[2020-04-17] MEDS ORDERED: GLUCAGON 1 MG VIAL IM PRN (01:43)
[2020-04-17] MEDS ORDERED: DEXTROSE 50% 25 GM/50 ML VIAL IV PRN (01:43)
[2020-04-17] MEDS ORDERED: THIAMINE INJ 100 MG, FOLIC ACID INJ 1 MG, MAGNESIUM SULF INJ 2 GM, MULTIVITAMIN INJ 10 ... IV ONE (03:30)
[2020-04-17 04:00] LABS: ABG Base Excess -3.6 MMOL/L (-2.5-2.5); ABG HCO3 21.5 MMOL/L (20-26); ABG Oxygen Saturation 99.4 % (95-100); ABG PCO2 45.5 MM HG (35-48); ABG PH 7.309 (7.35-7.45); ABG TCO2 20.4 MMOL/L (23-27); Allen Test Positive; Pt O2 Delivery Device Venturi Mask
[2020-04-17 04:20] LABS: Basophils % 0.7 % (0.0-0.8); Eosinophils % 0.5 % (0.00-10.9); Hematocrit 39.3 VOL% (42.0-52.0); Hemoglobin 12.8 GM/DL (14.0-18.0); Immature Granulocytes % 0.3 %; Immature Granulocytes Absolute 0.02 #; Lymphocytes # 0.9 10*3/uL (1.4-4.0); Lymphocytes % 15.1 % (21.2-54.2); Mean Corpuscular HGB Conc 32.6 GM/DL (32-36); Mean Corpuscular Volume 114.6 FL (87-102); Mean Platelet Volume 9.7 FL (9.6-12.0); Monocytes % 3.6 % (1.7-12.7); Neutrophils % 79.8 % (38.7-73.9); Platelet Count 140 T/CUMM (130-400); Red Blood Count 3.43 MC/CUMM (3.8-5.5); White Blood Count 6.1 T/CUMM (4-12)
[2020-04-17 04:38] LABS: Hypochromasia 1+; Platelet Estimate Normal
[2020-04-17 04:44] LABS: Folate > 24.0 NG/ML (5.4-24.0); Vitamin B12 534 PG/ML (211-911)
[2020-04-17 07:12] LABS: Calcium 8.2 MG/DL (8.5-10.1); Osmolality,Calculated 280.3 MOS/KG (273-304); Risk Ratio 2.14; Thyroid Stimulating Hormone 1.9 uIU/ml (0.358-3.74); VLDL CHOLESTEROL 19.6 MG/DL
[2020-04-17] MEDS: ALBUTEROL/IPRATROPIUM 3 ML NEB RESP TX SCH ×2 (07:58→13:15)
[2020-04-17] MEDS ORDERED: PANTOPRAZOLE 40 MG TABLET PO SCH (09:00)
[2020-04-17] MEDS: methylPREDNISolone SOD SUC 40 MG/1 ML VIAL IV SCH ×2 (09:11→16:22)
[2020-04-17 16:25] VITALS: BP 123/89
[2020-04-17] MEDS ORDERED: LEVOFLOXACIN INJ 750 MG in PREMIX 1 EACH IV SCH (21:00)
[2020-04-18] MEDS ORDERED: THIAMINE 200 MG/2 ML VIAL IV SCH (09:00)
[2020-04-18] MEDS ORDERED: MULTIVITAMIN (CENTRUM) TABLET PO SCH (09:00)
[2020-04-18] MEDS ORDERED: FOLIC ACID 1 MG TABLET PO SCH (09:00)
== END 2020-04-17 19:30 | disposition home or self-care (01) | DRG 775 ==
LOC: N.ED 22:15 → N.EDINP 04-17 01:43 → N.CC 04-17 03:25
PROVIDERS: ADMIT Internal Medicine; ATTEND Internal Medicine

== ENCOUNTER 2020-04-26 11:29 | Observation (INO) ==
[2020-04-26 12:01] LABS: Basophils # 0.1 10*3/uL (0.0-0.2); Basophils % 0.6 % (0.0-0.8); Eosinophils # 0.1 10*3/uL (0.0-0.87); Eosinophils % 0.6 % (0.00-10.9); Hematocrit 36.1 VOL% (42.0-52.0); Hemoglobin 12.3 GM/DL (14.0-18.0); Immature Granulocytes % 1.4 %; Immature Granulocytes Absolute 0.11 #; Lymphocytes # 0.9 10*3/uL (1.4-4.0); Lymphocytes % 11.4 % (21.2-54.2); Mean Corpuscular HGB Conc 34.1 GM/DL (32-36); Mean Corpuscular Volume 111.1 FL (87-102); Mean Platelet Volume 10.3 FL (9.6-12.0); Monocytes % 12.8 % (1.7-12.7); Neutrophils % 73.2 % (38.7-73.9); Platelet Count 123 T/CUMM (130-400); Red Blood Count 3.25 MC/CUMM (3.8-5.5); Red Cell Distribution Width 16.5 % (9.3-17.3); White Blood Count 8.1 T/CUMM (4-12)
[2020-04-26 12:29] LABS: Albumin 3.7 G/DL (3.4-5.0); Bilirubin,Total 1.6 MG/DL (0.2-1.0); Calcium 8.6 MG/DL (8.5-10.1); Osmolality,Calculated 280.4 MOS/KG (273-304); Total Protein 7.3 G/DL (6.4-8.3)
[2020-04-26 12:35] LABS: Platelet Estimate Adequate
[2020-04-26 12:36] LABS: Anisocytosis 1+; Macrocytosis 1+
[2020-04-26 13:51] LABS: Bilirubin,Urine Negative (Negative); Blood, Urine Negative (Negative); Glucose,Urine (UA) Negative (Negative); Hyaline Casts,Urine 14 /LPF (0-3); Ketones,Urine Negative (Negative); Mucus,Urine Occasional /LPF (Occasional); Nitrite,Urine Negative (Negative); Protein,Urine Negative; RBC,Urine 2 /HPF (0-4); Urine Appearance CLEAR (Clear); Urine Color Yellow (Yellow); Urine Specific Gravity 1.008 (1.001-1.035); Urine Urobilinogen < 2.0 EU/DL (0.2-1.0); WBC,Urine <1 /HPF (0-6)
[2020-04-26 13:58] LABS: Barbiturates Screen,Urine Negative (Negative); Benzodiazepines Screen,Urine Positive (Negative); Cannabinoid Screen,Urine Positive (Negative); Opiate Screen,Urine Negative (Negative); Phencyclidine Screen,Urine Negative (Negative)
[2020-04-26] MEDS ORDERED: LORazepam 2 MG/1 ML VIAL IV STA (14:37)
[2020-04-26] MEDS ORDERED: LEVOFLOXACIN INJ 750 MG in PREMIX 1 EACH IV STA (16:45)
[2020-04-26] MEDS ORDERED: METRONIDAZOLE IV STA (16:48)
[2020-04-26] MEDS ORDERED: ACETAMINOPHEN 325 MG TABLET PO PRN (17:56)
[2020-04-26] MEDS ORDERED: MORPHINE 4 MG/1 ML VIAL IV PRN (17:56)
[2020-04-26] MEDS ORDERED: ONDANSETRON 4 MG/2 ML VIAL IV PRN (17:56)
[2020-04-26] MEDS ORDERED: DEXTROSE 50% 25 GM/50 ML VIAL IV PRN (17:56)
[2020-04-26] MEDS ORDERED: GLUCAGON 1 MG VIAL IM PRN (17:56)
[2020-04-26] MEDS ORDERED: LORazepam 2 MG/1 ML VIAL IV PRN (18:04)
[2020-04-26] MEDS ORDERED: ALBUTEROL/IPRATROPIUM 3 ML NEB RESP TX PRN (18:06)
[2020-04-26] MEDS ORDERED: MAGNESIUM SULF RIDER 2 GM in PREMIX 1 EACH IV ONE (18:10)
[2020-04-26] MEDS ORDERED: ALBUTEROL 2.5 MG/3 ML NEB RESP TX PRN (18:11)
[2020-04-26] MEDS: FUROSEMIDE 40 MG/4 ML VIAL IV SCH (20:55)
[2020-04-26] MEDS: metroNIDAZOLE INJ 500 MG in PREMIX 1 EACH IV SCH (20:55)
[2020-04-26] MEDS: ENOXAPARIN 40 MG/0.4 ML SYRINGE SUBCUT SCH (20:56)
[2020-04-26] MEDS: ATORVASTATIN 40 MG TABLET PO SCH (21:46)
[2020-04-26] MEDS: LEVOFLOXACIN INJ 500 MG in PREMIX 1 EACH IV SCH (22:01)
[2020-04-26 23:46] LABS: Bilirubin,Urine Negative (Negative); Blood, Urine Negative (Negative); Glucose,Urine (UA) Negative (Negative); Hyaline Casts,Urine 5 /LPF (0-3); Ketones,Urine Negative (Negative); Mucus,Urine Occasional /LPF (Occasional); Nitrite,Urine Negative (Negative); Protein,Urine Negative; RBC,Urine <1 /HPF (0-4); Squamous Epithelial Cell,Urine Occasional /HPF (0-10); Urine Appearance CLEAR (Clear); Urine Color Straw (Yellow); Urine Specific Gravity 1.005 (1.001-1.035); Urine Urobilinogen < 2.0 EU/DL (0.2-1.0); WBC,Urine 1 /HPF (0-6)
[2020-04-27] MEDS: metroNIDAZOLE INJ 500 MG in PREMIX 1 EACH IV SCH ×3 (04:04→20:33)
[2020-04-27 06:05] LABS: Basophils % 0.6 % (0.0-0.8); Eosinophils # 0.1 10*3/uL (0.0-0.87); Eosinophils % 0.9 % (0.00-10.9); Hematocrit 33.2 VOL% (42.0-52.0); Immature Granulocytes % 0.5 %; Immature Granulocytes Absolute 0.03 #; Lymphocytes # 0.9 10*3/uL (1.4-4.0); Lymphocytes % 14.2 % (21.2-54.2); Mean Corpuscular HGB Conc 33.1 GM/DL (32-36); Mean Corpuscular Volume 112.2 FL (87-102); Mean Platelet Volume 10.8 FL (9.6-12.0); Monocytes % 14.2 % (1.7-12.7); Neutrophils % 69.6 % (38.7-73.9); Platelet Count 118 T/CUMM (130-400); Red Blood Count 2.96 MC/CUMM (3.8-5.5); Red Cell Distribution Width 16.4 % (9.3-17.3); White Blood Count 6.4 T/CUMM (4-12)
[2020-04-27 06:33] LABS: Albumin 3.3 G/DL (3.4-5.0); Bilirubin,Total 2.7 MG/DL (0.2-1.0); Calcium 8.3 MG/DL (8.5-10.1); Osmolality,Calculated 276.7 MOS/KG (273-304); Risk Ratio 1.87; Total Protein 6.4 G/DL (6.4-8.3); VLDL CHOLESTEROL 20.6 MG/DL
[2020-04-27] MEDS: PANTOPRAZOLE 40 MG TABLET PO SCH (08:27)
[2020-04-27] MEDS: ASPIRIN EC 81 MG TABLET PO SCH (08:27)
[2020-04-27] MEDS: FOLIC ACID 1 MG TABLET PO SCH (08:27)
[2020-04-27] MEDS: CYANOCOBALAMIN 500 MCG TABLET PO SCH (08:27)
[2020-04-27] MEDS: carvediloL 3.125 MG TABLET PO SCH ×2 (08:27→16:00)
[2020-04-27] MEDS: THIAMINE 100 MG TABLET PO SCH (08:27)
[2020-04-27] MEDS: FUROSEMIDE 40 MG/4 ML VIAL IV SCH ×2 (08:30→15:50)
[2020-04-27] MEDS: FLUTICASONE 50 MCG NASAL SPRAY 16 GM BOTTLE BOTH NARES SCH (08:30)
[2020-04-27] MEDS: NICOTINE 7 MG/24 HR PATCH TRANSDERM SCH (08:32)
[2020-04-27] MEDS: SPIRONOLACTONE 100 MG TABLET PO SCH (11:08)
[2020-04-27 12:05] LABS: INR 1.3; PT Patient Result 13.9 SECS (9.8-11.9); Partial Thromboplastin Time 29.6 SECS (23.9-33.8)
[2020-04-27 12:58] LABS: Hepatitis B Core IgM Quant 0.18 Index; Hepatitis B Surface Ag Quant < 0.10 Index; Hepatitis B Surface Ag Result Negative (Negative); Hepatitis C Virus Ab Quant 0.13 Index; Hepatitis C Virus Ab Result Negative (Negative)
[2020-04-27] MEDS: chlordiazePOXIDE 25 MG CAPSULE PO SCH ×2 (15:50→20:35)
[2020-04-27] MEDS: LEVOFLOXACIN INJ 500 MG in PREMIX 1 EACH IV SCH (20:35)
[2020-04-27] MEDS: ATORVASTATIN 40 MG TABLET PO SCH (20:35)
[2020-04-27] MEDS: ENOXAPARIN 40 MG/0.4 ML SYRINGE SUBCUT SCH (20:36)
[2020-04-28] MEDS: metroNIDAZOLE INJ 500 MG in PREMIX 1 EACH IV SCH ×2 (04:32→13:24)
[2020-04-28 05:54] LABS: Basophils # 0.1 10*3/uL (0.0-0.2); Eosinophils # 0.1 10*3/uL (0.0-0.87); Hematocrit 33.3 VOL% (42.0-52.0); Immature Granulocytes % 0.7 %; Immature Granulocytes Absolute 0.04 #; Lymphocytes # 1.2 10*3/uL (1.4-4.0); Lymphocytes % 20.1 % (21.2-54.2); Mean Corpuscular Volume 112.5 FL (87-102); Mean Platelet Volume 11.3 FL (9.6-12.0); Monocytes % 14.4 % (1.7-12.7); Neutrophils % 62.8 % (38.7-73.9); Platelet Count 107 T/CUMM (130-400); Red Blood Count 2.96 MC/CUMM (3.8-5.5); Red Cell Distribution Width 16.1 % (9.3-17.3)
[2020-04-28 06:14] LABS: Bilirubin,Direct 0.6 MG/DL (0.0-0.20); Bilirubin,Total 2.4 MG/DL (0.2-1.0); Osmolality,Calculated 277.5 MOS/KG (273-304); Total Protein 6.1 G/DL (6.4-8.3)
[2020-04-28] MEDS: carvediloL 3.125 MG TABLET PO SCH ×3 (10:21→16:03)
[2020-04-28] MEDS: chlordiazePOXIDE 25 MG CAPSULE PO SCH ×3 (10:22→20:31)
[2020-04-28] MEDS: SPIRONOLACTONE 100 MG TABLET PO SCH (10:22)
[2020-04-28] MEDS: MULTIVITAMIN (CENTRUM) TABLET PO SCH (10:22)
[2020-04-28] MEDS: LOSARTAN 25 MG TABLET PO SCH (10:22)
[2020-04-28] MEDS: FLUTICASONE 50 MCG NASAL SPRAY 16 GM BOTTLE BOTH NARES SCH (10:22)
[2020-04-28] MEDS: ASPIRIN EC 81 MG TABLET PO SCH (10:22)
[2020-04-28] MEDS: FUROSEMIDE 40 MG/4 ML VIAL IV SCH ×2 (10:22→15:14)
[2020-04-28] MEDS: FOLIC ACID 1 MG TABLET PO SCH (10:22)
[2020-04-28] MEDS: NICOTINE 7 MG/24 HR PATCH TRANSDERM SCH (10:22)
[2020-04-28] MEDS: FLUoxetine 20 MG CAPSULE PO SCH (10:23)
[2020-04-28] MEDS: CYANOCOBALAMIN 500 MCG TABLET PO SCH (10:23)
[2020-04-28] MEDS: THIAMINE 100 MG TABLET PO SCH (10:23)
[2020-04-28] MEDS: CLOPIDOGREL 75 MG TABLET PO SCH (10:23)
[2020-04-28] MEDS: PANTOPRAZOLE 40 MG TABLET PO SCH (10:23)
[2020-04-28] MEDS: POLYETHYLENE GLYCOL POWDER 17 GM PACK PO SCH (20:31)
[2020-04-28] MEDS: ATORVASTATIN 40 MG TABLET PO SCH (20:32)
[2020-04-29 06:43] LABS: Basophils # 0.1 10*3/uL (0.0-0.2); Basophils % 0.9 % (0.0-0.8); Eosinophils # 0.1 10*3/uL (0.0-0.87); Hematocrit 34.4 VOL% (42.0-52.0); Hemoglobin 11.5 GM/DL (14.0-18.0); Immature Granulocytes % 0.6 %; Immature Granulocytes Absolute 0.03 #; Mean Corpuscular HGB Conc 33.4 GM/DL (32-36); Mean Corpuscular Volume 112.8 FL (87-102); Mean Platelet Volume 11.1 FL (9.6-12.0); Monocytes % 12.1 % (1.7-12.7); Neutrophils % 66.4 % (38.7-73.9); Platelet Count 131 T/CUMM (130-400); Red Blood Count 3.05 MC/CUMM (3.8-5.5); Red Cell Distribution Width 16.2 % (9.3-17.3); White Blood Count 5.4 T/CUMM (4-12)
[2020-04-29 07:03] LABS: Hypochromasia Slight; Platelet Estimate Adequate
[2020-04-29 07:19] LABS: Albumin 2.8 G/DL (3.4-5.0); Bilirubin,Total 1.3 MG/DL (0.2-1.0); Calcium 8.8 MG/DL (8.5-10.1); Osmolality,Calculated 278.4 MOS/KG (273-304); Total Protein 6.1 G/DL (6.4-8.3)
[2020-04-29 07:37] LABS: Folate 18.6 NG/ML (5.4-24.0)
[2020-04-29] MEDS: carvediloL 3.125 MG TABLET PO SCH (09:05)
[2020-04-29] MEDS: SPIRONOLACTONE 100 MG TABLET PO SCH (09:05)
[2020-04-29] MEDS: MULTIVITAMIN (CENTRUM) TABLET PO SCH (09:06)
[2020-04-29] MEDS: chlordiazePOXIDE 25 MG CAPSULE PO SCH ×2 (09:06→16:02)
[2020-04-29] MEDS: FOLIC ACID 1 MG TABLET PO SCH (09:06)
[2020-04-29] MEDS: ASPIRIN EC 81 MG TABLET PO SCH (09:06)
[2020-04-29] MEDS: LOSARTAN 25 MG TABLET PO SCH (09:06)
[2020-04-29] MEDS: POLYETHYLENE GLYCOL POWDER 17 GM PACK PO SCH (09:08)
[2020-04-29] MEDS: NICOTINE 7 MG/24 HR PATCH TRANSDERM SCH (09:08)
[2020-04-29] MEDS: PANTOPRAZOLE 40 MG TABLET PO SCH (09:09)
[2020-04-29] MEDS: THIAMINE 100 MG TABLET PO SCH (09:09)
[2020-04-29] MEDS: CLOPIDOGREL 75 MG TABLET PO SCH (09:09)
[2020-04-29] MEDS: FLUoxetine 20 MG CAPSULE PO SCH (09:09)
[2020-04-29] MEDS: CYANOCOBALAMIN 500 MCG TABLET PO SCH (09:10)
[2020-04-29] MEDS: FLUTICASONE 50 MCG NASAL SPRAY 16 GM BOTTLE BOTH NARES SCH (09:15)
[2020-04-29] MEDS: FUROSEMIDE 40 MG/4 ML VIAL IV SCH (09:15)
[2020-04-29 16:23] VITALS: BP 116/85
[2020-04-30 13:47] LABS: Antinuclear Ab, S 0.1 U
[2020-05-01 13:57] LABS: Alpha-1-Antitrypsin, Serum 164 mg/dL (100 - 190)
== END 2020-04-29 16:10 | disposition home or self-care (01) ==
LOC: N.EDINP 11:29 → N.ED 11:29 → N.3E 19:45
PROVIDERS: ADMIT Internal Medicine; ATTEND Internal Medicine